=== PATIENT | female | born 1950 | race Caucasian/White ===

== ENCOUNTER 2024-05-14 12:43 | Inpatient (IN) | payer MEDICARE, OTHER, SELFPAY ==
[2024-05-14 10:06] VITALS: BP 131/68
--- NOTE | 2024-05-14 11:12 | ED.MUSCINJ ---
HPI-Injury
General
Chief Complaint: Musculo-Skeletal Complaint
Source: patient
Exam Limitations: none
Time Seen by Provider: 05/14/24 10:54
History of Present Illness-Injury
Initial Injury comments:
73-year-old female presents via EMS from home after trip and fall. She has a foot drop in her right foot got in the way. She fell on her right arm. She complains of pain and deformity to the right forearm. She is typically walker dependent
secondary to her foot drop. She is not anticoagulated. Last oral intake 9 PM last evening. She denies numbness or tingling to the right hand. No head strike no neck pain or back pain. No other complaints at this time
Past History
Past History
ED Past Medical History: Psychiatric and Other (pain)
ED Past Surgical History: Orthopedic (L ORIF Elder)
Social History
Tobacco: Former smoker
Alcohol: None
Drug: None
Personal: Single
Living: alone
Employment: Employed
Family History
Family History: Other (reviewed and non-contributory)
Phy Exam
Physical Exam
Physical Exam:
General: Well-appearing female no acute respiratory distress
HEENT: Normocephalic atraumatic
Heart: Regular rate and rhythm
Lungs: Clear no wheeze
Musculoskeletal exam: Deformity noted to the right forearm she is tender about the right forearm the compartments are soft. The upper arm is nontender she has the ability to move all fingers and thumb right hand
Vascular: Compartments are soft right radial pulses palpable
Neurologic: Good sensation right hand
Skin is intact
Injury Course
Orders/Labs/Results
Orders:
Orders
05/14/24 10:09
Forearm, Right 2 View [CR Forearm - Right 2 View] Urgent
Comment:
Reason For Exam: pain
05/14/24 10:10
Wrist, Right 3 Views [CR Wrist - Right Min 3 Views] Urgent
Comment:
Reason For Exam: pain
MDM/Problems Addressed
Differential Diagnosis Includes:
Trip and fall with right forearm pain. Question fracture versus dislocation. No sign of neuro or vascular injury.
X-rays of the right forearm demonstrate angulated and 100% displaced both bone midshaft forearm fracture. Contacted orthopedics. Do not think patient is good candidate for discharge and outpatient management given walker dependency and severity of
injury
*Critical Care Note
Total Time (30-74mins, 75-104mins- exclusive of procedures): Not Applicable
Update Note
Update Note:
Orthopedics aware they plan on taking the patient to the operating room today for fixation. Hospitalist made aware for admission as she may need placement after the procedure. I applied a sugar-tong splint in the position of comfort using cast
padding 2 inch OCL and Terrence bandages.
ED Attending Note
-
Portions of this chart may have been created with voice recognition software.� Occasional wrong word or��sound alike� substitutions may have occurred due to the inherent limitations of voice recognition software.
Discharge Plan
Departure
Patient Disposition: Admit
Date of Disposition: 05/14/24
Time of Disposition: 11:50
Presentation/result/management discussed w/ accepting MD/DO: Hospitalist
Discharge Problem:
Displaced both bone forearm fracture
Prescriptions:
No Action
baclofen 20 MG tablet
20 mg PO TID
escitalopram oxalate 10 MG tablet
10 mg PO DAILY@1600
acetaminophen 325 MG tablet
650 mg PO Q4HPRN PRN (Reason: mild pain/DAMON/temp> 100.4F) 0RF
aripiprazole 2 MG tablet
2 mg PO DAILY 0RF
zolpidem 5 MG tablet
5 mg PO HS Qty: 5 0RF
pregabalin [Lyrica] 150 MG capsule
150 mg PO BID Qty: 6 0RF
oxycodone 10 MG tablet
10 mg PO Q8HPRN PRN (Reason: moderate pain) Qty: 10 0RF
Referrals:
UNKNOWN - PT DOES,NOT KNOW [Family Provider] -
Interventions
Interventions:
*Risk Screen - Suicide Last Done: 05/14/24 10:06
*General Assessment Last Done: 05/14/24 10:06
*Neglect/Abuse Screening Last Done: 05/14/24 10:06
*ED- Fall Risk Assessment Last Done: 05/14/24 11:37
*ED COVID-19 Vaccine History Last Done: 05/14/24 11:37
ED-Musculoskeletal Assessment Last Done: 05/14/24 11:37
Discharge Date and Time
Print Language: OMANI
--- NOTE | 2024-05-14 12:04 | CON.ORTHO ---
Consultation
-
Date/Time Consultation Requested: 05/14/24 @11:30am
Date/Time Consultation Performed: 05/14/24 @11:45am
Requesting Provider: ER Provider
Performing Provider: Miriam Ramirez PA-C, Jersey Alberto MD
Reason for Consultation: right radius and ulna fracture
Consultation - Orthopedics
History
HPI: 73yo female presents to [facility] for right arm pain. Earlier this morning, she was bringing a package in from outside and fell, landing on her right arm. She noted pain and deformity following the fall. She reports a history of right foot
drop and use of a walker. She states that she did have her walker at the time of the fall. Xrays performed in the ER confirm a both bone forearm fracture. She has not eaten or drank anything since last night. She is not on any blood thinners. Right
arm splint was being applied at the time of my evaluation. She does reports pain in the arm. She is right hand dominant.
PAST MEDICAL HISTORY: psych, chronic pain
PAST SURGICAL HISTORY: Right distal radius ORIF, left humerus ORIF
SOCIAL HISTORY: former smoker. denies alcohol. ambulates with walker at baseline
FAMILY HISTORY: non contributory
REVIEW OF SYSTEMS: 12 point review of systems obtained and negative except those mentioned in the HPI
Allergies / Home Medications
Allergy/AdvReac Type Severity Reaction Status Date / Time
penicillin G Allergy Rash Verified 05/14/24 10:09
Penicillins Allergy Rash Verified 05/14/24 10:09
bees Allergy Anaphylaxis Uncoded 05/14/24 10:09
�Medication �Instructions �Recorded
baclofen 20 mg tablet 20 mg PO TID 03/29/19
escitalopram oxalate 10 mg tablet 10 mg PO DAILY@1600 03/29/19
acetaminophen 325 mg tablet 650 mg (2 x 325 mg) PO Q4HPRN PRN 04/02/19
mild pain/DAMON/temp> 100.4F
aripiprazole 2 mg tablet 2 mg PO DAILY 04/02/19
oxycodone 10 mg tablet 10 mg PO Q8HPRN PRN moderate pain 04/02/19
#10 tabs
pregabalin 150 mg capsule (Lyrica) 150 mg PO BID #6 caps 04/02/19
zolpidem 5 mg tablet 5 mg PO HS #5 tabs 04/02/19
Vital Signs / Lab Results
Temp Pulse Resp BP Pulse Ox
97.8 F 70 16 131/68 95
05/14/24 10:06 05/14/24 10:06 05/14/24 10:06 05/14/24 10:06 05/14/24 10:06
RADIOGRAPHIC FINDINGS:
Xrays right forearm show there is diffuse osteopenia. There are displaced fractures through the mid shaft of both the right radius and ulna with foreshortening. There is adjacent soft tissue edema. Plate and screw device within the distal right
radius secondary to prior fracture. The carpal rows are in anatomic alignment. There is mild degenerative arthropathy involving the first carpal metacarpal joint.
PHYSICAL EXAM:
General: no acute distress
HEENT: NCAT, sclera anicteric, normal hearing
Heart: No JVD
Lungs: Normal work of breathing on room air
MSK: Directed exam of right arm with splint in place. I did not remove. Able to wiggles fingers. Sensation intact to light touch. Cap refill <2secs
Assessment / Plan
ASSESSMENT: 73yo female with right both bone forearm fracture
PLAN: Unfortunately, Ms. Riley sustained fractures to both her radius and ulna with her fall this morning. Recommend surgical fixation. The risks, benefits, and potential complications were reviewed. She is in agreement with surgery. Will plan for
ORIF right radius and ulna later today under the direction of Dr. Alberto or Dr. Delgado. Consent obtained and placed at OR front office secretary. She is to remain NPO. Ancef projection welding machine operator to OR. Maintain splint. Elevate as needed. Continue with pain management as
needed. Will continue to follow along.
[2024-05-14 12:08] LABS: % Basophils 0.4 % (0-2); % Eosinophils 0.4 % (0-6); % Immature Granulocytes 0.2 % (0-0.5); % Lymphocytes 17.6 % (20.5-51.1); % Neutrophils 76.4 % (42.2-75.2); Absolute Lymphocytes 1.7 10^3/uL (1.2-3.4); Absolute Monocytes 0.5 10^3/uL (0.1-0.6); Absolute Neutrophils 7.4 10^3/uL (1.4-6.5); Hematocrit 37.6 % (37.0-47.0); Hemoglobin 12.5 g/dL (12.0-16.0); Mean Corp Hgb Conc. 33.2 g/dL (33.0-37.0); Mean Corpuscular Hgb 29.7 pg (27.0-31.0); Mean Corpuscular Volume 89.3 fL (81.0-99.0); Mean Platelet Volume 10.3 fL (7.4-10.4); Nucleated Red Blood Cells % 0 %; Platelet Count 169 10^3/uL (130-400); Red Blood Cell Count 4.21 10^6/uL (4.20-5.40); Red Cell Dist. Width 14.6 % (11.5-14.5); White Blood Cell Count 9.7 10^3/uL (4.8-10.8)
--- NOTE | 2024-05-14 12:09 | HPS.HSE ---
Family Physician
-
Family Physician: NOT KNOW UNKNOWN - PT DOES
Chief Complaint
-
fall
History of Present Illness
73-year-old female with PMH for depression presents s/p fall from home. patient has right foot drop, she was picking package from outside, she lost the balance and fell on her right arm. she was on the floor for 45 minutes. denied hitting head on
the floor.denied dizzy or syncope.denied chest pain, sob.denied fever, chills. denied abdominal pain,n,v,d. denied dysuria or hematuria
wrist x ray with the impression of Right forearm deformity secondary to displaced fractures involving the midshafts of the right radius and ulna with foreshortening.
admitting for further managment.
Medical History
Past Medical History
Past Medical History: Reports Other
Additional Past Medical History:
HLD
depression
Past Surgical History: Reports None
Social History
Tobacco: Non-smoker
Alcohol: None
Drug: None
Living: Alone
Family History
Family History: Not pertinent
Allergies / Home Medications
Allergies reflects when Allergies were last updated in [facility].
Home Medications with original date entered in [facility]
Allergy/Medication List:
Allergies
Allergy/AdvReac Type Severity Reaction Status Date / Time
penicillin G Allergy Rash Verified 05/14/24 10:09
Penicillins Allergy Rash Verified 05/14/24 10:09
bees Allergy Anaphylaxis Uncoded 05/14/24 10:09
Home Medications
baclofen 20 mg tablet 20 mg PO TID 03/29/19
escitalopram oxalate 10 mg tablet 10 mg PO DAILY@1600 03/29/19
acetaminophen 325 mg tablet 650 mg (2 x 325 mg) PO Q4HPRN PRN mild pain/DAMON/temp> 100.4F 04/02/19
aripiprazole 2 mg tablet 2 mg PO DAILY 04/02/19
oxycodone 10 mg tablet 10 mg PO Q8HPRN PRN moderate pain #10 tabs 04/02/19
pregabalin 150 mg capsule (Lyrica) 150 mg PO BID #6 caps 04/02/19
zolpidem 5 mg tablet 5 mg PO HS #5 tabs 04/02/19
Review of Systems
-
Constitutional: Reports No Symptoms
EENT: Reports No Symptoms
Respiratory: Reports No Symptoms
Cardiac: Reports No Symptoms
Abdomen/GI: Reports No Symptoms
: Reports No Symptoms
Musculoskeletal: Reports Other (right arm wrapped in neva)
Skin: Reports Other (right LE redness from recent burn from dropping hot tea on her LE)
Neurological: Reports No Symptoms
Endocrine: Reports No Symptoms
Hematologic/Lymphatic: Reports No Symptoms
Psych: Reports No Symptoms
Physical Exam
Vital Signs
Vital Signs
Temp Pulse Resp BP Pulse Ox
97.8 F 70 16 131/68 95
05/14/24 10:06 05/14/24 10:06 05/14/24 10:06 05/14/24 10:06 05/14/24 10:06
Physical Exam
General: Well Developed, Well Nourished and No Apparent Distress
HEENT: NormoCephalic, Moist mucous membranes and Atraumatic
Respiratory: Clear
Cardiac: S1/S2 and Regular Rhythm; No Murmur or Rub
GI: Soft, Non Tender, Non Distended and Normal Bowel Sounds; No Organomegaly
Rectal: Deferred by Provider
Musculoskeletal: No Clubbing, No Cyanosis, No Edema and Other (right UE wrapped in neva)
Skin: Rash and Other (right foot redness from burning)
Neuro: AO x 3 and Nonfocal/grossly intact
Psych: Calm
Laboratory Results
-
05/14/24 11:53
Data Reviewed
-
Diagnostic Radiology: Report Reviewed by me
Lab Data: Labs Reviewed by me
Impression/Plan
-
#fall with right radius and ulna fracture
-plan for OR today
-ortho following
-Tylenol, oxy and Dilaudid prn for pain
-keep patient NPO
-wrist X ray with the impression of Right forearm deformity secondary to displaced fractures involving the midshafts of the right radius and ulna with foreshortening.
-forearm x ray with Right forearm deformity secondary to displaced fractures involving the midshafts of the right radius and ulna with foreshortening.
-PT/OT consult
#depression
-trazodone and Cymbalta continued
#chronic foot drop/pain
-baclofen and Lyrica continued
#DVT prophylaxis
-scd
#CODE status
-full code
[2024-05-14 12:22] LABS: ALT (SGPT) 12 U/L (0-35); AST (SGOT) 23 U/L (14-36); Alkaline Phosphatase 91 U/L (38-126); Blood Urea Nitrogen 12 mg/dl (7-17); Calcium 9.2 mg/dl (8.4-10.2); Carbon Dioxide 26 mmol/L (22-30); Chloride 106 mmol/L (98-107); Glucose 94 mg/dl (70-99); Potassium 4.4 mmol/L (3.5-5.1); Sodium 139 mmol/L (135-145); Total Bilirubin 0.8 mg/dl (0.2-1.3); Total Protein 7.2 g/dl (6.3-8.2); eGFR > 60.00
[2024-05-14 12:44] VITALS: BP 132/69
--- NOTE | 2024-05-14 13:11 | W.PN.UPDATE ---
Update Note
Progress Note Update
This is an addendum to the H&P written by Roxana Rios on 05/14/2024.� Patient seen and examined independently with PLANETARIUM TECHNICIAN.
73-year-old female past medical history of sensory/axonal peripheral neuropathy, right foot drop, presenting with trip and fall.� She has foot drop in her right foot got in the way.� She fell onto her right arm.
X-ray of the right forearm/wrist shows displaced fractures involving the mid chest the right radius/ulna with foreshortening.
Plan for surgery today with orthopedics.� Patient with low risk of post cardiac complications.� NPO.� Tylenol, Dilaudid for pain as needed.
[2024-05-14 14:19] VITALS: BP 146/79; BMI 28.1
[2024-05-14] MEDS: DILAUDID 0.5 MG IV (15:25)
[2024-05-14 15:39] VITALS: BP 113/73
[2024-05-14] MEDS: TYLENOL 650 MG PO ×2 (17:11→21:12)
[2024-05-14] MEDS: LIORESAL 20 MG PO ×2 (17:11→21:12)
[2024-05-14] MEDS: LYRICA 150 MG PO ×2 (17:11→21:12)
[2024-05-14 20:09] LABS: Hepatitis C Antibody Negative (Negative)
[2024-05-14] MEDS: DESYREL 300 MG PO (21:11)
[2024-05-14] MEDS: CYMBALTA DELAYED RELEASE 30 MG PO (21:12)
[2024-05-14] MEDS: COLACE 100 MG PO (21:13)
[2024-05-14] MEDS: SENOKOT 17.2 MG PO (21:13)
[2024-05-14] MEDS: ROXICODONE 5 MG PO (21:17)
[2024-05-14 23:22] VITALS: BP 85/53
[2024-05-15] VITALS (10 sets, daily range): BP systolic 90–110; BP diastolic 46–71
[2024-05-15] MEDS: TYLENOL PO ×5 (01:00→23:45)
[2024-05-15] MEDS: DILAUDID 0.5 MG IV (01:20)
--- NOTE | 2024-05-15 07:28 | W.PN.UPDATE ---
Update Note
Progress Note Update
Ms. Riley is resting comfortably in bed this morning. Her right upper extremity has a short arm splint in place. She reports her pain is well controlled with her current medications. She is planned for surgery today for ORIF radius and ulna
fractures under the direction of either Dr. Delgado or Dr. Alberto.
She is able to wiggle her fingers. Good color and warmth of fingers. Sensation intact to light touch. Capillary refill <2 seconds.
Continue in splint until surgery.
NPO until surgery.
Pain control prn.
Orthopedics will continue to follow along. Please reach out with any additional questions or concerns.
[2024-05-15] MEDS: LYRICA 150 MG PO ×2 (08:31→23:10)
[2024-05-15] MEDS: SENOKOT PO ×2 (08:32→20:24)
[2024-05-15] MEDS: TYLENOL 650 MG PO ×2 (08:32→20:18)
[2024-05-15] MEDS: LIORESAL 20 MG PO ×2 (08:32→23:10)
[2024-05-15] MEDS: COLACE PO (08:32)
--- NOTE | 2024-05-15 12:36 | W.PN.HOSP.TC ---
Today's Communication/Plan
-
OR today
dvt ppx thereafter
Assessment / Plan
Assessment / Plan
Physical Exam
General: Well Developed, Well Nourished and No Apparent Distress
HEENT: NormoCephalic, Moist mucous membranes and Atraumatic
Respiratory: Clear
Cardiac: S1/S2 and Regular Rhythm; No Murmur or Rub
GI: Soft, Non Tender, Non Distended and Normal Bowel Sounds; No Organomegaly
Rectal: Deferred by Provider
Musculoskeletal: No Clubbing, No Cyanosis, No Edema and Other (right UE wrapped in neva)
Skin: Rash and Other (right foot redness from burning)
Neuro: AO x 3 and Nonfocal/grossly intact
Psych: Calm
#Mechanical fall
#right radius and ulna fracture
-plan for OR today
-ortho following
-Tylenol, oxy and Dilaudid prn for pain
-keep patient NPO
-wrist X ray with the impression of Right forearm deformity secondary to displaced fractures involving the midshafts of the right radius and ulna with foreshortening.
-forearm x ray with Right forearm deformity secondary to displaced fractures involving the midshafts of the right radius and ulna with foreshortening.
-PT/OT consult
-dvt ppx thereafter
#depression
-trazodone and Cymbalta continued
#chronic foot drop/pain
-baclofen and Lyrica continued
#DVT prophylaxis
-scd; start asa 325mg or hsq depending on ortho recs post procedure
#CODE status
-full code
Anticipated Discharge: Within 24 hours
Subjective/Interval History
-
Date of Service: May 15, 2024
No acute events
Objective Data
-
Vital Signs:
Vital Signs
Temp Pulse Resp BP Pulse Ox
97.6 F 63 16 96/50 97
05/15/24 07:30 05/15/24 07:30 05/15/24 07:30 05/15/24 07:30 05/15/24 07:30
I&O
05/14/24 05/15/24 05/16/24
06:59 06:59 06:59
Intake Total 480 / 480
Balance 480 / 480
Review of Systems
-
History Source: Patient
All other systems: Not reviewed unless documented
Data Reviewed
-
Diagnostic Radiology: Report Reviewed by me
Labs: Labs Reviewed by me
[2024-05-15] MEDS: LYRICA PO (16:00)
[2024-05-15] MEDS: LIORESAL PO (16:00)
[2024-05-15 16:11] LABS: Creatine Phosphokinase 66 U/L (30-135)
--- NOTE | 2024-05-15 20:00 | PTCARENOTE ---
Received from PACU nurses around 1950 and surgical site assessed with off-going PACU nurse at bedside. Pt. received a block intraop and has no sensation or control of RUE at this time. Brachial artery weak but palpable, fingers warm, capillary
refill <2secs, and VSS.
[2024-05-15] MEDS: COLACE 100 MG PO (20:18)
[2024-05-15] MEDS: LOW STRENGTH ASPIRIN 81 MG PO (20:18)
[2024-05-15] MEDS: CELEBREX 100 MG PO (20:18)
[2024-05-15] MEDS: CYMBALTA DELAYED RELEASE 30 MG PO (23:10)
[2024-05-15] MEDS: DESYREL 300 MG PO (23:10)
[2024-05-15] MEDS: FLUSH (NSS) 2 FLUSH IV (23:19)
[2024-05-15] MEDS: ANCEF 5 IV (23:19)
[2024-05-16] MEDS: MELATONIN 5 MG PO (01:27)
[2024-05-16 03:00] VITALS: BP 94/55
[2024-05-16] MEDS: TYLENOL PO ×2 (05:16→14:11)
--- NOTE | 2024-05-16 06:58 | W.PN.ORTHO ---
Today's Communication / Plan
-
-Elevation right upper extremity to above the level of her heart to control swelling and pain
-Interscalene block still is working so she has no sensation and cannot wiggle her fingers at this morning (hand warm to touch with good capillary refill and pulses)
-Sling with strict nonweightbearing right upper extremity
-Follow-up with orthopedics 2 weeks postop to check her progress
Assessment
.
Distal Motor Intact: No
Dressing:
Clean, dry and intact.
Plan
.
Surgery / Date: ORIF R radius/ulna 05/15 Ritting
DVT Prophylaxis: Aspirin
Activity:
Out of bed.
PT/OT
Subjective
.
.:
Patient resting comfortably.
Vital Signs and Labs
.
Vital Signs and Labs:
Temp Pulse Resp BP Pulse Ox
98.3 F 75 12 94/55 93
05/16/24 03:00 05/16/24 03:00 05/16/24 03:00 05/16/24 03:00 05/16/24 03:00
Physical Exam
-
Splint in place right upper extremity. It is clean, dry and intact. Edema noted with in her fingers. Fingers are warm to touch with capillary refill 2 to 3 seconds and pulses are palpable. She is numb in her hand and fingers and cannot move them
but she did have an interscalene block which accounts for this.
[2024-05-16 07:17] LABS: Hematocrit 33.4 % (37.0-47.0); Mean Corp Hgb Conc. 32.9 g/dL (33.0-37.0); Mean Corpuscular Hgb 29.6 pg (27.0-31.0); Mean Corpuscular Volume 89.8 fL (81.0-99.0); Mean Platelet Volume 10.9 fL (7.4-10.4); Platelet Count 159 10^3/uL (130-400); Red Blood Cell Count 3.72 10^6/uL (4.20-5.40); Red Cell Dist. Width 14.8 % (11.5-14.5)
[2024-05-16 07:30] VITALS: BP 101/64
[2024-05-16] MEDS: ANCEF 5 IV (07:30)
[2024-05-16] MEDS: LYRICA 150 MG PO ×3 (07:30→22:54)
[2024-05-16] MEDS: CELEBREX 100 MG PO ×2 (07:30→19:46)
[2024-05-16] MEDS: LOW STRENGTH ASPIRIN 81 MG PO ×2 (07:30→19:46)
[2024-05-16] MEDS: TYLENOL 650 MG PO ×3 (07:30→19:46)
[2024-05-16] MEDS: COLACE PO ×2 (07:31→19:46)
[2024-05-16] MEDS: LIORESAL 20 MG PO ×3 (07:31→22:54)
[2024-05-16] MEDS: SENOKOT PO ×2 (07:31→19:46)
[2024-05-16 07:51] LABS: ALT (SGPT) 12 U/L (0-35); AST (SGOT) 24 U/L (14-36); Albumin 3.6 g/dl (3.5-5.0); Alkaline Phosphatase 79 U/L (38-126); Blood Urea Nitrogen 19 mg/dl (7-17); Calcium 8.4 mg/dl (8.4-10.2); Carbon Dioxide 28 mmol/L (22-30); Chloride 104 mmol/L (98-107); Estimated Creatinine Clearance 61 ml/min; Glucose 136 mg/dl (70-99); Potassium 4.6 mmol/L (3.5-5.1); Sodium 138 mmol/L (135-145); Total Bilirubin 0.5 mg/dl (0.2-1.3); Total Protein 6.4 g/dl (6.3-8.2); eGFR > 60.00
--- NOTE | 2024-05-16 10:33 | CM ---
Addendum entered by Obdulia Dillon 05/16/24 13:53:
Seen by PT/OT - recs SNF
[facility] with pt [facility]
Will send referrals in [facility]
Plan - SNF when bed obtained
Original Note:
Met with pt at bedside
Initial assessment completed
Pt lives alone in an apartment at [facility]. Has caretakers through [employer] 5hrs/day M-F - assist with adl's, cleaning, meal prep
Min assist with adl's, feeds self, heats up meals, ambulates with rolling walker
SNF - [facility] in past
[facility] - [facility] in past
Has ride at d/c
PCP - Maty Stout with [facility] (make home visits)
Pharm - [facility]
PT/OT pend post op
Plan - anticipate home with VN vs SNF
[2024-05-16 11:26] VITALS: BP 95/51
--- NOTE | 2024-05-16 12:37 | W.PN.HOSP.TC ---
Addendum entered and electronically signed by Chico Gusman MD 06/02/24 14:45:
Due to a combination of trauma and a pathological process
but the trauma alone would not likely have been sufficient
to cause the fracture
Original Note:
Today's Communication/Plan
-
-ASA 81mg BID x 6 weeks
-Elevation right upper extremity to above the level of her heart to control swelling and pain
-Interscalene block still is working so she has no sensation and cannot wiggle her fingers at this morning (hand warm to touch with good capillary refill and pulses)
-Sling with strict nonweightbearing right upper extremity
-Follow-up with orthopedics 2 weeks postop to check her progress
Assessment / Plan
Assessment / Plan
Physical Exam
General: Well Developed, Well Nourished and No Apparent Distress
HEENT: NormoCephalic, Moist mucous membranes and Atraumatic
Respiratory: Clear
Cardiac: S1/S2 and Regular Rhythm; No Murmur or Rub
GI: Soft, Non Tender, Non Distended and Normal Bowel Sounds; No Organomegaly
Rectal: Deferred by Provider
Musculoskeletal: No Clubbing, No Cyanosis, No Edema and Other (right UE wrapped in neva)
Skin: Rash and Other (right foot redness from burning)
Neuro: AO x 3 and Nonfocal/grossly intact
Psych: Calm
#Mechanical fall
#right radius and ulna fracture
-ORIF R radius/ulna 05/15 Ritting
-ortho following
-ASA 81mg BID x 6 weeks
-Elevation right upper extremity to above the level of her heart to control swelling and pain
-Interscalene block still is working so she has no sensation and cannot wiggle her fingers at this morning (hand warm to touch with good capillary refill and pulses)
-Sling with strict nonweightbearing right upper extremity
-Follow-up with orthopedics 2 weeks postop to check her progress
#depression
-trazodone and Cymbalta continued
#chronic foot drop/pain
-baclofen and Lyrica continued
#DVT prophylaxis
-scd; -ASA 81mg BID x 6 weeks
#CODE status
-full code
More than 30 minutes spent in discharge including
Final examination of the patient
Summarizing hospital stay
Instructions for continuing care to all relevant caregivers
Preparation of discharge records, prescriptions, and referral forms
Total time spent (35 in minutes):
Anticipated Discharge: Today
Subjective/Interval History
-
Date of Service: May 16, 2024
Tolerated procedure well
Objective Data
-
Labs:
Laboratory Results
05/16/24
06:10
WBC 10.0
Hgb 11.0 L
Hct 33.4 L
Plt Count 159
Sodium 138
Potassium 4.6
Chloride 104
Carbon Dioxide 28
BUN 19 H
Creatinine 0.9
Glucose 136 H
Calcium 8.4
Total Bilirubin 0.5
AST 24
ALT 12
Alkaline Phosphatase 79
Vital Signs:
Vital Signs
Temp Pulse Resp BP Pulse Ox
98.4 F 78 16 95/51 96
05/16/24 11:26 05/16/24 11:26 05/16/24 11:26 05/16/24 11:26 05/16/24 11:26
I&O
05/15/24 05/16/24 05/17/24
06:59 06:59 06:59
Intake Total 480 / 480 100 / 100
Output Total 625 / 625
Balance 480 / 480 -525 / -525
Review of Systems
-
History Source: Patient
All other systems: Not reviewed unless documented
Data Reviewed
-
Diagnostic Radiology: Report Reviewed by me
Labs: Labs Reviewed by me
--- NOTE | 2024-05-16 12:39 | W.DS.TRANS ---
DC Summary - [employer] Serv[employer]
-
Discharge Instructions:
Discharge Diagnosis/Procedures
#Mechanical fall
#right radius and ulna fracture
#ORIF radius and ulna fractures
Activity As tolerated
Blood Work cbc and bmp in 1 week with PCP
Instructions: Surgery to fix a broken bone - Discharge instructions
Stand-Alone Forms:
Changes to Home Medications: Yes
Discharge Medications:
DC Medications w/original date entered in [employer]
baclofen 20 mg tablet 20 mg PO TID 03/29/19
duloxetine 30 mg capsule,delayed release (Cymbalta) 30 mg PO HS 05/14/24
ergocalciferol (vitamin D2) 1,250 mcg (50,000 unit) capsule 1,250 mcg PO MO 05/14/24
pregabalin 150 mg capsule (Lyrica) 150 mg PO TID 05/14/24
trazodone 150 mg tablet 300 mg PO HS 05/14/24
acetaminophen 325 mg tablet 650 mg (2 x 325 mg) PO Q4HWA Pain #90 tabs 05/16/24
aspirin 81 mg chewable tablet 81 mg PO BID 6 weeks #84 tabs 05/16/24
celecoxib 100 mg capsule 100 mg PO BID 7 days #14 caps 05/16/24
Home Medication Changes
celecoxib 100 mg capsule 100 mg PO BID 7 days #14 caps 05/16/24
acetaminophen 325 mg tablet 650 mg (2 x 325 mg) PO Q4HWA Pain #90 tabs 05/16/24
aspirin 81 mg chewable tablet 81 mg PO BID 6 weeks #84 tabs 05/16/24
Pending Results: No
[2024-05-16 13:38] VITALS: BP 102/60; PULSE 82; O2SAT 94
--- NOTE | 2024-05-16 15:10 | PN.CDI ---
CDI
- -
CDI:
Physician Documentation Request
Admit Date: 05/14/24 12:43
Dear Doctor Uzma,
Please review the following and provide your response in the progress notes.
Clinical Indicators:
Pt admitted with mechanical fall/ right radius and right ulna fracture.
05/14 Right forearm Xray: 'There is diffuse osteopenia. There are displaced fractures through the mid shaft of both the right radius and ulna with foreshortening.'
Please provide further specificity regarding the diagnosis of fracture:
Etiology
Traumatic
Pathologic due to osteoporosis
Due to a combination of trauma and a pathological process
but the trauma alone would not likely have been sufficient
to cause the fracture
Other
Use of terms such as suspected, likely, concern for, or probable (associated with a specific diagnosis that is being evaluated, monitored, or treated as if it exists) are acceptable and can be coded in the inpatient setting, when documented at the
time of discharge.
Thank you,
Silvia Silver RN, BSN
CDI Specialist
[facility] [employer]
Please use your independent medical judgment in providing your response.
[2024-05-16 19:00] VITALS: BP 100/54
[2024-05-16] MEDS: CYMBALTA DELAYED RELEASE 30 MG PO (22:54)
[2024-05-16] MEDS: DESYREL 300 MG PO (22:54)
[2024-05-16 23:00] VITALS: BP 92/43
[2024-05-17] MEDS: TYLENOL 650 MG PO ×4 (00:32→12:37)
[2024-05-17 07:25] VITALS: BP 94/56
--- NOTE | 2024-05-17 07:28 | W.PN.ORTHO ---
Today's Communication / Plan
-
73F POD2 Right radius and ulna diaphyseal ORIF with Dr. Delgado
-completely NVI today
-Elevation right upper extremity to above the level of her heart to control swelling and pain
-Sling with strict nonweightbearing right upper extremity; may take breaks from sling when at rest- ROM of fingers and shoulder ok
-Follow-up with orthopedics 2 weeks postop to check her progress outpatient
-PT/OT - fall risk with foot drop and limited use of assistive devices. Likely 4-6 weeks until able to use a walker
-recommend ASA 81 BID to reduce DVT risk until ambulatory/30 days anticipated.
D/C info completed- ortho will follow peripherally
Assessment
.
Distal Motor Intact: Yes
Dressing:
Clean, dry and intact.
Plan
.
Surgery / Date: ORIF R radius/ulna shaft 05/15 Dr. Delgado
DVT Prophylaxis: Aspirin
Activity:
Out of bed.
PT/OT
Subjective
.
.:
Patient resting comfortably.
Vital Signs and Labs
.
Vital Signs and Labs:
Lab Results
05/16/24 06:10
05/16/24 06:10
Temp Pulse Resp BP Pulse Ox
98.4 F 84 14 92/43 95
05/16/24 23:00 05/16/24 23:00 05/16/24 23:00 05/16/24 23:00 05/16/24 23:00
[2024-05-17] MEDS: COLACE 100 MG PO (08:23)
[2024-05-17] MEDS: CELEBREX 100 MG PO (08:23)
[2024-05-17] MEDS: LOW STRENGTH ASPIRIN 81 MG PO (08:23)
[2024-05-17] MEDS: SENOKOT 17.2 MG PO (08:24)
[2024-05-17] MEDS: LIORESAL 20 MG PO (08:24)
[2024-05-17] MEDS: LYRICA 150 MG PO (08:24)
--- NOTE | 2024-05-17 11:35 | CM ---
Pt accepted at [facility] - requested [facility]
Spoke with [facility] - has beds today - can accept
Team notified
Given IMM
Plan - transfer to [facility]
R - [phone]
- [phone]
[2024-05-17 12:50] VITALS: BP 106/63
== END 2024-05-17 13:30 | DRG 512 ==
LOC: 2 SOUTH 12:43
PROVIDERS: Internal Medicine; Orthopaedic Surgery Hand Surgery; Physician Assistant; ADMITTING PHYSICIAN Hospitalist; ATTENDING PHYSICIAN Internal Medicine; EMERGENCY PHYSICIAN Emergency Medicine; OTHER PHYSICIAN Orthopaedic Surgery
PROC: 0PSK04Z Reposition Right Ulna with Internal Fixation Device, Open Approach (ICD-10-PCS; 2024-05-15)
PROC: 0PSH04Z Reposition Right Radius with Internal Fixation Device, Open Approach (ICD-10-PCS; 2024-05-15)
DX: M84.633 Pathological fracture in other disease, right radius (principal); M84.63 Pathological fracture in other disease, ulna and radius; M85.831 Other specified disorders of bone density and structure, right forearm; M21.371 Foot drop, right foot; E78.5 Hyperlipidemia, unspecified; F32.A Depression, unspecified; G89.29 Other chronic pain; Z88.0 Allergy status to penicillin; Z79.899 Other long term (current) drug therapy; Z87.891 Personal history of nicotine dependence; W01.0XXA Fall on same level from slipping, tripping and stumbling without subsequent striking against object, initial encounter
CPT/HCPCS: 73090; 73110; 80053; 82550; 85025; 85027; 86803; 97163; 97167; 97535; 99285; C1713

== ENCOUNTER 2024-07-19 09:09 | Emergency (ER) | payer MEDICARE, OTHER, SELFPAY ==
[2024-07-19] VITALS (8 sets, daily range): BP systolic 102–140; BP diastolic 62–84; BMI 28.5
--- NOTE | 2024-07-19 09:14 | ED.GENMED ---
History of Present Illness
General
Chief Complaint: Fall
Source: patient and ambulance crew
Exam Limitations: none
Time Seen by Provider: 07/19/24 09:11
Nursing documentation reviewed up to this point in time: agreed with
History of Present Illness
History of Present Illness:
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
stand up throughout the night for multiple hours. Called EMS this morning.
Past History
Past History
ED Past Medical History: Psychiatric and Other (pain)
ED Past Surgical History: Orthopedic (Clay Friedman)
Social History
Tobacco: Former smoker
Alcohol: None
Drug: None
Personal: Single
Living: alone
Employment: Employed
Family History
Family History: Other (reviewed and non-contributory)
Review of Systems
Review of Systems
Allergies reviewed?: Yes
All Other Systems: ROS reviewed and negative except as documented in HPI and ROS
Phy Exam
Physical Exam
Physical Exam:
GENERAL: Alert , in no apparent distress
EYE: pupils equal and reactive
NECK: Supple, no significant adenopathy.
ENT: o/p clr, mmm.
CARDIAC: Regular rate and rhythm .
LUNGS: Clear breath sounds bilaterally, no acute respiratory distress, no wheezes/rales/rhonchi
ABDOMEN: Soft, without focal tenderness, no r/g, no cvat
NEUROLOGICAL: Alert and oriented, no focal neuro deficits
SKIN: Warm and dry, skin intact.
MUSCULOSKELETAL: Right arm in a sling, well perfused.
PSYCH: Normal and appropriate interaction.
Course
Orders/Labs/Results
Orders:
Orders
07/19/24 09:11
Urinalysis Reflex To Culture Urgent
Date Specimen was Collected: 07/19/24
Time Specimen was Collected: 09:51
07/19/24 09:12
Electrocardiogram (*1) Stat
Reason for Study: Other
Other Reason for Exam: chest pain
Cardiac Monitoring- Treatment ONCE
EKG- Treatment ONCE
CR Chest - 2 Views Urgent
Comment:
Reason For Exam: CP
07/19/24 09:19
Complete Blood Count/With Diff Urgent
Comprehensive Metabolic Panel Urgent
Creatine Phosphokinase Urgent
D-Dimer Urgent
Magnesium Urgent
Troponin I Urgent
07/19/24 10:21
CR Foot - Left Min 3 Views Urgent
Comment:
Reason For Exam: foot pain after fall
07/19/24 11:19
CT Chest PE Study Urgent
Comment:
Reason For Exam: chest pain elevated dimer
07/19/24 13:14
Terrence Wrap Left-Treatment ONCE
Abnormal Lab Results
07/19/24
09:19
MCHC 32.9 L g/dL
(33.0-37.0)
RDW 14.8 H %
(11.5-14.5)
D-Dimer 0.81 H ug/mlFEU
(0.00-0.50)
Carbon Dioxide 31 H mmol/L
(22-30)
BUN 24 H mg/dl
(7-17)
Glucose 101 H mg/dl
(70-99)
Magnesium 2.4 H mg/dl
(1.6-2.3)
Creatine Kinase 149 H U/L
(30-135)
Total Protein 8.3 H g/dl
(6.3-8.2)
07/19/24 09:19
07/19/24 09:19
Vital Signs
Initial and Last Documented VS:
Initial Vital Signs
Resp
23
07/19/24 09:14
Last Documented Vital Signs
Temp Pulse Resp BP Pulse Ox
98.0 F 82 13 109/82 95
07/19/24 09:20 07/19/24 11:19 07/19/24 11:19 07/19/24 11:19 07/19/24 11:19
MDM/Problems Addressed
MDM/Problems Addressed:
74-year-old female presenting to the emergency department today with concerns of a fall tripping up over a Pilates machine at home fell to the ground last night was on the ground for multiple hours called EMS this morning. Here patient
well-appearing no distress. Labs showing elevated D-dimer level of 0.81 otherwise vital signs have been normal throughout ER stay CT PE was obtained without acute abnormalities no signs of PE. Otherwise labs without emergent findings other than
slight potential dehydration was given fluids able tolerate by mouth. X-ray without signs of fracture. Patient chest pain likely due to irritation from her fall specifically. Does not seem to be consistent with any cardiac syndrome or any
emergent pathology. Advised for close outpatient follow-up.
*Critical Care Note
Total Time (30-74mins, 75-104mins- exclusive of procedures): Not Applicable
ED Attending Note
-
Portions of this chart may have been created with voice recognition software.� Occasional wrong word or��sound alike� substitutions may have occurred due to the inherent limitations of voice recognition software.
Discharge Plan
Departure
Patient Disposition: Home (Routine Discharge)
Date of Disposition: 07/19/24
Time of Disposition: 13:15
Patient with high blood pressure during this ER visit?: No
Condition: Good
Covid-19: Not Applicable
Discharge Problem:
Fall, Foot sprain, Chest pain
Instructions: Preventing falls in adults
Prescriptions:
No Action
baclofen 20 MG tablet
20 mg PO TID
pregabalin [Lyrica] 150 MG capsule
150 mg PO TID
trazodone 150 mg Tablet
300 mg PO HS
ergocalciferol (vitamin D2) 1,250 mcg (50,000 unit) Capsule
1,250 mcg PO MO
duloxetine [Cymbalta] 30 mg Capsule,Delayed Release(Dr/Ec)
30 mg PO HS
acetaminophen 325 mg Tablet
650 mg PO Q4HWA Qty: 90 0RF
celecoxib 100 mg Capsule
100 mg PO BID 7 Days Qty: 14 0RF
aspirin 81 mg Tablet,Chewable
81 mg PO BID 42 Days Qty: 84 0RF
Referrals:
NONE,* [Family Provider] -
Activity Restrictions/Additional Instructions:
You came to the emergency department today with concerns after a fall. Here your reassuring assessment. Please have close with your primary care doctor within 1 week for reassessment. Return for any worsening, new or concerning symptoms.
Interventions
Interventions:
*Risk Screen - Suicide Last Done: 07/19/24 09:45
*General Assessment Last Done: 07/19/24 09:20
*Neglect/Abuse Screening Last Done: 07/19/24 09:20
*ED- Fall Risk Assessment Last Done: 07/19/24 09:20
*ED COVID-19 Vaccine History Last Done: 07/19/24 09:20
ED-Musculoskeletal Assessment Last Done: 07/19/24 09:45
ED- Neurological Assessment Last Done: 07/19/24 09:45
ED-Skin Assessment Last Done: 07/19/24 09:45
Discharge Date and Time
Print Language: OMANI
[2024-07-19 09:36] LABS: % Basophils 0.5 % (0-2); % Eosinophils 1.2 % (0-6); % Immature Granulocytes 0.3 % (0-0.5); % Monocytes 8.2 % (1.7-9.3); % Neutrophils 68.8 % (42.2-75.2); Absolute Eosinophils 0.1 10^3/uL (0-0.7); Absolute Lymphocytes 1.6 10^3/uL (1.2-3.4); Absolute Monocytes 0.6 10^3/uL (0.1-0.6); Absolute Neutrophils 5.4 10^3/uL (1.4-6.5); Hematocrit 39.8 % (37.0-47.0); Hemoglobin 13.1 g/dL (12.0-16.0); Mean Corp Hgb Conc. 32.9 g/dL (33.0-37.0); Mean Corpuscular Hgb 29.6 pg (27.0-31.0); Mean Platelet Volume 9.7 fL (7.4-10.4); Nucleated Red Blood Cells % 0 %; Platelet Count 230 10^3/uL (130-400); Red Blood Cell Count 4.42 10^6/uL (4.20-5.40); Red Cell Dist. Width 14.8 % (11.5-14.5); White Blood Cell Count 7.8 10^3/uL (4.8-10.8)
[2024-07-19 09:49] LABS: ALT (SGPT) 20 U/L (0-35); AST (SGOT) 25 U/L (14-36); Albumin 4.6 g/dl (3.5-5.0); Alkaline Phosphatase 121 U/L (38-126); Blood Urea Nitrogen 24 mg/dl (7-17); Calcium 9.3 mg/dl (8.4-10.2); Carbon Dioxide 31 mmol/L (22-30); Chloride 107 mmol/L (98-107); Creatine Phosphokinase 149 U/L (30-135); Estimated Creatinine Clearance 55 ml/min; Glucose 101 mg/dl (70-99); Magnesium 2.4 mg/dl (1.6-2.3); Potassium 4.1 mmol/L (3.5-5.1); Sodium 144 mmol/L (135-145); Total Bilirubin 0.7 mg/dl (0.2-1.3); Total Protein 8.3 g/dl (6.3-8.2); eGFR 59.12
[2024-07-19 10:00] LABS: Troponin I < 0.012 ng/ml
[2024-07-19 10:31] LABS: D-Dimer 0.81 ug/mlFEU (0.00-0.50)
--- NOTE | 2024-07-19 13:09 | EDRN ---
Patient is sleeping at this time with call jackson in reach.
== END 2024-07-19 17:39 | disposition home or self-care (01) ==
LOC: EMR 09:09
PROVIDERS: Physician Assistant; EMERGENCY PHYSICIAN Emergency Medicine
DX: S93.602A Unspecified sprain of left foot, initial encounter (principal); R07.9 Chest pain, unspecified; W19.XXXA Unspecified fall, initial encounter; Z87.891 Personal history of nicotine dependence; R79.1 Abnormal coagulation profile
CPT/HCPCS: 99285; 71046; 71275; 73630; 80053; 82550; 83735; 84484; 85025; 85379; 93005; Q9967

== ENCOUNTER 2024-11-27 18:27 | Inpatient (IN) | payer MEDICARE, OTHER, SELFPAY ==
[2024-11-27] VITALS (8 sets, daily range): BP systolic 131–152; BP diastolic 61–85; BMI 28.2; BMI 26.8; BMI 27.0
[2024-11-27 15:35] LABS: Hematocrit 30.9 % (37.0-47.0); Hemoglobin 10.5 g/dL (12.0-16.0); Mean Corp Hgb Conc. 34.0 g/dL (33.0-37.0); Mean Corpuscular Volume 87.8 fL (81.0-99.0); Nucleated Red Blood Cells % 0 %; Platelet Count 175 10^3/uL (130-400); Red Cell Dist. Width 15.1 % (11.5-14.5)
[2024-11-27] MEDS: MORPHINE SULFATE 2 MG IV ×2 (15:35→18:38)
[2024-11-27] MEDS: NSS 500 IV (15:35)
--- NOTE | 2024-11-27 15:43 | ED.GENMED ---
History of Present Illness
General
Chief Complaint: Fall
Source: patient
Exam Limitations: none
Time Seen by Provider: 11/27/24 15:16
Nursing documentation reviewed up to this point in time: agreed with
History of Present Illness
History of Present Illness:
Patient presents to ED from [facility], after falling down, while walking to bathroom yesterday evening, landing on her right side. Patient was unable to stand up and laid on the ground entire day. Today, patient was able to finally reach her
phone and call for help. Patient denies loss of consciousness. Denies headache. Denies neck pain. Denies chest pain. Denies palpitations or shortness of breath prior to falling. Denies nausea or vomiting. Denies recent illness. Denies recent
change in medications or diet. Patient does not take any blood thinning medications. Patient received normal saline along with fentanyl by paramedics, during transport to ED.
Past History
Past History
ED Past Medical History: Psychiatric and Other (pain)
ED Past Surgical History: Orthopedic (Clay Friedman)
Social History
Tobacco: Former smoker
Alcohol: None
Drug: None
Personal: Single
Living: alone
Employment: Employed
Family History
Family History: Other (reviewed and non-contributory)
Review of Systems
Review of Systems
Allergies reviewed?: Yes
All Other Systems: ROS reviewed and negative except as documented in HPI and ROS
Constitutional: Reports no symptoms; Denies fever
Respiratory: Reports no symptoms; Denies trouble breathing
Cardiac: Reports no symptoms; Denies chest pain, palpitations or syncope
ABD/GI: Reports no symptoms
Musculoskeletal: Reports back pain and other (hip and back pain)
Skin: Reports no symptoms
Neurological: Reports no symptoms
Phy Exam
Physical Exam
Physical Exam:
Physical Exam
General: mild painful distress, not acutely ill. afebrile
Head: nc/at. eomi
Neck: supple. normal range of motion. no midline tenderness.
Heart: s1/s2 regular rate and rhythm
Lungs: no acute respiratory distress. clear bilaterally
Abdomen: normal bowel sounds. not tender.
Neuro: alert and oriented x 3. no focal neurological deficits
Skin: no rash
Psychiatric: well kept. interactive and cooperative
Extremities: RLE: shortened and externally rotated.
Course
Orders/Labs/Results
Orders:
Orders
11/27/24 Dinner
Regular
At Your Request: Full Participation
11/27/24 15:06
EKG [Electrocardiogram (*1)] Urgent
Reason for Study: Other
Other Reason for Exam: fall
EKG- Treatment ONCE
11/27/24 15:22
EKG- Treatment ONCE
CR Hips GILBERT w/wo Pel 3-4 Vw Urgent
Comment:
Reason For Exam: trauma
Include a pelvis x-ray?: Yes
11/27/24 15:23
0.9% Sodium Chloride 500 ml [Nss] 500 ml IV BOLUS
Morphine Sulfate 2 mg IV NOW STA
11/27/24 15:26
CPK [Creatine Phosphokinase] Urgent
Complete Blood Count/With Diff Urgent
Comprehensive Metabolic Panel Urgent
Lactic Acid Urgent
Troponin I Urgent
11/27/24 15:47
CR Lumbar Spine 2 Or 3 Views Urgent
Reason For Exam: trauma
11/27/24 16:20
Case Management Consult ONCE
Case Management Consult: Discharge Planning
Requested By:: NURSING
Comment: patient lives independently at [facility]- frequent falls.
11/27/24 17:15
Urinalysis Reflex To Culture Urgent
Date Specimen was Collected: 11/27/24
Time Specimen was Collected: 17:13
Urine Microscopic Reflex Cult Urgent
Urine Culture Urgent
NUNO Source: U
Specimen Description:
Date Specimen was Collected: 11/27/24
Time Specimen was Collected: 17:13
11/27/24 17:53
Admit/Transfer Patient As Directed
Co-Sign Provider:
Level of Care: Inpatient admission
Assign to:: Medical/Surgical
Physician / Group: Chris Marroquin
Diagnosis: closed right hip fracture, leukocytosis
Reason for Hospitalization: closed right hip fracture, leukocytosis
Expected length of stay greater than two midnights?: Yes
ELOS- Estimated Length of Stay in days: 3
I certify the patient meets the requirements for IP care: Yes
STOOL [C difficile Antigen & Toxins] Urgent
NUNO Source: Feces/Stool
Specimen Description:
Stool Culture Urgent
NUNO Source: Feces/Stool
Specimen Description:
11/27/24 17:54
Code Status As Directed
Resuscitation Status: Do not resuscitate
Reached after discussion with pt or family/Healthcare POA: Yes
Decision communicated with: patient
11/27/24 17:56
DNR Bracelet Application ONCE
11/27/24 20:10
Lactic Acid Q6H
11/27/24 20:47
0.9% Sodium Chloride 1000 ml [Nss] 1,000 ml IV 100 mls/hr
0.9%NaCl irrig-decyl glucoside [Sea-Clens Wound Cleanser] 1 ml IRRIG BID
Acetaminophen [Tylenol] 650 mg PO Q4HPRN PRN
Morphine Sulfate 2 mg IV Q4HPRN PRN
Oxycodone [Roxicodone] 5 mg PO Q4HPRN PRN
11/27/24 20:47
ORTHOPEDIC CONSULT Routine
Consulting Provider: Se Garcia
Was physician already notified: Yes
WOUND/OSTOMY CONSULT Routine
Reason for Consult: left great toe and left heel wounds
Activity As Directed
Activity Level: As Tolerated
Pneumatic Compression Sleeves As Directed
Type: Knee high
Vital Signs As Directed
Frequency: Per unit guidelines
Weight As Directed
Frequency: Once
Comment: on admission
DX Deep Vein Thrombosis Video Routine
11/27/24 22:00
Baclofen [Lioresal] 20 mg PO TID
CefTRIAXone [Rocephin] 1,000 mg IV Q24H
Pregabalin [Lyrica] 150 mg PO TID
Trazodone [Desyrel] 300 mg PO HS
11/28/24 Breakfast
NPO
Allow oral meds: Yes
Allow clear liquids: No
11/28/24 07:23
Basic Metabolic Panel IN AM
Complete Blood Count/No Diff IN AM
12/02/24 08:00
Ergocalciferol [Drisdol (Vitamin D2)] 50,000 units PO MO
Abnormal Lab Results
11/27/24 11/27/24
15:26 17:15
WBC 14.6 H 10^3/uL
(4.8-10.8)
RBC 3.52 L 10^6/uL
(4.20-5.40)
Hgb 10.5 L g/dL
(12.0-16.0)
Hct 30.9 L %
(37.0-47.0)
RDW 15.1 H %
(11.5-14.5)
MPV 10.6 H fL
(7.4-10.4)
Abs Immat Gran (auto) 0.1 H 10^3/uL
(0-0.05)
Absolute Neuts (auto) 12.2 H 10^3/uL
(1.4-6.5)
Absolute Monos (auto) 1.0 H 10^3/uL
(0.1-0.6)
Neutrophils % 83.2 H %
(42.2-75.2)
Lymphocytes % 9.3 L %
(20.5-51.1)
BUN 23 H mg/dl
(7-17)
Glucose 125 H mg/dl
(70-99)
Lactic Acid 2.5 H mmol/L
(0.7-2.0)
Total Bilirubin 1.6 H mg/dl
(0.2-1.3)
Creatine Kinase 591 H U/L
(30-135)
Urine Ketones 3+ A
(Negative)
Ur Occult Blood Reflex 1+ A
(Negative)
Urine Nitrite (Reflex) Positive A
(Negative)
Leukocyte Esterase Rfl 1+ A
(Negative)
Urine Bacteria (Reflex) Many A
(Negative)
Urine Albumin (Reflex) 2+ A
(Neg - Trace)
11/27/24 15:26
11/27/24 15:26
Vital Signs
Initial and Last Documented VS:
Initial Vital Signs
Temp Pulse Resp Pulse Ox
98.8 F 79 20 94
11/27/24 15:02 11/27/24 15:02 11/27/24 15:02 11/27/24 15:02
Last Documented Vital Signs
Temp Pulse Resp BP Pulse Ox
98 F 88 17 130/66 92
11/28/24 07:41 11/28/24 07:41 11/28/24 07:41 11/28/24 07:41 11/28/24 07:41
MDM/Problems Addressed
MDM/Problems Addressed:
History/exam/X-ray consistent with right hip fracture. Pt otherwise is afebrile, hemodynamically stable and neurologically intact. Will admit to hospitalist service.
Orthopaedic surgery () notified via tigertext
*Pulse Oximetry
SaO2: 94
Oxygen Mode of Delivery: Room air
Patient hypoxic: no
*EKG
Interpreted by ED Provider?: Yes
EKG Intrepretation Date: 11/27/24
Heart Rate: 76
Rate: normal
Rhythm: sinus
Irwin: normal axis
Interval: normal interval
*Critical Care Note
Total Time (30-74mins, 75-104mins- exclusive of procedures): Not Applicable
ED Attending Note
-
Portions of this chart may have been created with voice recognition software.� Occasional wrong word or��sound alike� substitutions may have occurred due to the inherent limitations of voice recognition software.
Discharge Plan
Departure
Patient Disposition: Admit
Date of Disposition: 11/27/24
Time of Disposition: 17:08
Admit to: Med/Surg
Presentation/result/management discussed w/ accepting MD/DO: Hospitalist
Discharge Problem:
Closed hip fracture
Interventions
Interventions:
*Risk Screen - Suicide Last Done: 11/27/24 15:13
*General Assessment Last Done: 11/27/24 15:13
*Neglect/Abuse Screening Last Done: 11/27/24 15:10
*ED- Fall Risk Assessment Last Done: 11/27/24 15:20
*ED COVID-19 Vaccine History Last Done: 11/27/24 15:10
*Nursing Disposition Last Done: 11/27/24 21:37
ED-Musculoskeletal Assessment Last Done: 11/27/24 15:20
ED- Neurological Assessment Last Done: 11/27/24 15:20
ED-Skin Assessment Last Done: 11/27/24 15:20
Discharge Date and Time
Discharge Date/Time: 11/27/24 21:38
[2024-11-27 15:49] LABS: AST (SGOT) 32 U/L (14-36); Albumin 4.0 g/dl (3.5-5.0); Alkaline Phosphatase 72 U/L (38-126); Calcium 9.4 mg/dl (8.4-10.2); Carbon Dioxide 28 mmol/L (22-30); Chloride 105 mmol/L (98-107); Estimated Creatinine Clearance 68 ml/min; Glucose 125 mg/dl (70-99); Potassium 3.9 mmol/L (3.5-5.1); Sodium 140 mmol/L (135-145); Total Protein 7.0 g/dl (6.3-8.2); eGFR > 60.00
[2024-11-27 15:58] LABS: Blood Urea Nitrogen 23 mg/dl (7-17)
[2024-11-27 16:01] LABS: Troponin I < 0.012 ng/ml
[2024-11-27 16:14] LABS: ALT (SGPT) 21 U/L (0-35)
--- NOTE | 2024-11-27 16:56 | EDCM ---
Received consult, reviewed chart and met with pt bedside in ED. Lives alone in apartment at [facility], has elevator access.
Needs assistance with ADLs and personal care. Ambulates with RW. Does admit to frequent falls.
Has caregiver through [facility] that comes on / for 5 hours a day.
Also receives home PT through [facility].
Confirms prescription coverage.
Current with [facility], has had Sylvie in the past. also hx Marcelina Garcia
CM will continue to follow for all discharge planning needs.
[2024-11-27 17:22] LABS: Urine Character Slightly Cloudy (Clear)
--- NOTE | 2024-11-27 17:22 | HPS.HSE ---
Addendum entered and electronically signed by Chris Marroquin MD 11/27/24 19:36:
This is an addendum to the H&P written by Jinny Hylton on 11/27/2024. �Patient seen and examined independently with [employer]ELOPMENT MANAGER.
74-year-old female past medical history of depression, chronic foot drop, presenting from [facility] after falling down while walking onto the bathroom yesterday evening. �She landed on her right side. �Was unable to stand and would lean on the
ground the entire day. �She was able to reach the phone today and call for help. �Denies loss of consciousness. �Denies headache. �Denies neck pain. �Denies chest pain. �Denies chest pain or shortness of breath. �Denies nausea or vomiting but having
diarrhea since yesterday.�
Vital signs unremarkable. Patient with foul smelling urine.�
Labs show leukocytosis of 14. �Hemoglobin of 10.5 from 13.1 in July. �Lactic acid 2.5. �Creatinine kinase of 590.
Hip x-ray shows right hip fracture.
Patient with right hip fracture. �Pain control, n.p.o. postmidnight. �Orthopedics consulted. Patient low risk of cardiac complications and can proceed to surgery.�
Patient with likely UTI. Also concern for acute gastroenteritis. IV fluids. Check stool studies.� Ceftriaxone. Check stool studies.�
Original Note:
Family Physician
-
Family Physician: TEGAN JULY
Chief Complaint
-
right hip and thigh pain
History of Present Illness
Patient is a 74-year-old female with past medical history of depression, axonal polyneuropathy, deep peroneal neuropathy and anemia who presented to [facility] ED for evaluation of right hip and thigh pain s/p mechanical fall. Patient states she was
dreaming and fell, she does not believe she tripped on anything, does no recall any dizziness, palpitations or syncope. Did state she laid on floor for 1-2 days post fall before being able to get phone to call for help. Reports diarrhea in last day
with loose stools. Denies fever, chills, cough, shortness of breath, chest pain, nausea, vomiting, constipation or urinary symptoms.
Medical History
Past Medical History
Past Medical History: Reports Other
Additional Past Medical History:
depression
axonal polyneuropathy
deep peroneal neuropathy
anemia
Past Surgical History: Reports Other
Additional Past Surgical History:
ORIF radius and ulna fractures
Social History
Tobacco: Non-smoker
Alcohol: None
Drug: None
Living: Alone ([facility])
Family History
Family History: Not pertinent
Allergies / Home Medications
Allergies reflects when Allergies were last updated in [employer].
Home Medications with original date entered in [employer]
Allergy/Medication List:
Allergies
Allergy/AdvReac Type Severity Reaction Status Date / Time
penicillin G Allergy Rash Verified 07/19/24 09:24
Penicillins Allergy Rash Verified 07/19/24 09:24
venom-honey bee Allergy Anaphylaxis Verified 07/19/24 09:24
Home Medications
baclofen 20 mg tablet 20 mg PO TID 03/29/19
ergocalciferol (vitamin D2) 1,250 mcg (50,000 unit) capsule 1,250 mcg PO MO 05/14/24
pregabalin 150 mg capsule (Lyrica) 150 mg PO TID 05/14/24
trazodone 150 mg tablet 300 mg PO HS 05/14/24
0.9 % sodium chloride-decyl glucoside irrigation solution (Sea-Clens Wound Cleanser irrigation solution) 1 ml irrigation BID left foot 11/27/24
Review of Systems
-
History Source: Patient
Constitutional: Denies Fever or Chills
EENT: Denies Sore Throat
Respiratory: Denies Cough or Trouble Breathing
Cardiac: Denies Chest Pain, Diaphoresis, Palpitations or Syncope
Abdomen/GI: Reports Diarrhea; Denies Abdominal Pain, Nausea, Vomiting or Constipated
: Denies Dysuria, Frequency, Difficulty Voiding or Urgency
Musculoskeletal: Denies Edema
Skin: Reports Other (left heel and great toe wounds); Denies Rash
Neurological: Denies Headache, Weakness or Numbness
Physical Exam
Vital Signs
Vital Signs
Temp Pulse Resp Pulse Ox
98.8 F 79 20 94
11/27/24 15:02 11/27/24 15:02 11/27/24 15:02 11/27/24 15:44
Physical Exam
General: Well Developed, Well Nourished, No Apparent Distress, Conversant and Obese
HEENT: NormoCephalic, Moist mucous membranes and Atraumatic
Respiratory: Clear and Non Labored Respirations
Cardiac: S1/S2 and Regular Rhythm; No Murmur, Rub or Gallop
GI: Soft, Non Tender, Non Distended and Normal Bowel Sounds
Rectal: Deferred by Provider
Musculoskeletal: No Clubbing, No Cyanosis, No Edema and Other (right lower extremity shortened and externally rotated )
Skin: Warm and IV/Catheter Site; No Rash
Neuro: Awake, AO x 3 and Nonfocal/grossly intact
Psych: Calm
Laboratory Results
-
11/27/24 15:26
11/27/24 15:26
Laboratory Results
Lactic Acid 2.5 mmol/L (0.7-2.0) H 11/27/24 15:26
Total Bilirubin 1.6 mg/dl (0.2-1.3) H 11/27/24 15:26
AST 32 U/L (14-36) 11/27/24 15:26
ALT 21 U/L (0-35) 11/27/24 15:26
Alkaline Phosphatase 72 U/L (38-126) 11/27/24 15:26
Troponin I < 0.012 ng/ml 11/27/24 15:26
Data Reviewed
-
Medical Tests (Nuc Med, Echo, EKG etc): Report Reviewed by me (EKG: NORMAL SINUS RHYTHM)
Lab Data: Labs Reviewed by me (WBC 14.6, hgb 10.5, hct 30.9, Neut 83.2, Lactic 2.5, CK 591)
Impression/Plan
-
IMPRESSION/PLAN:
#right hip/thigh pain s/p mechanical fall
CK 591
EKG: NORMAL SINUS RHYTHM
Lumbar spine x-ray: report pending
Rt hip x-ray: report pending
- Admit to med/surg
- Consult orthopedics
- pain regimen
- NPO at midnight
#leukocytosis
reports diarrhea x1 day, no urinary complaints
WBC 14.6, Neut 83.2, Lactic 2.5
UA: indicative of UTI
Urine Cx: pending
Stool Cx: pending
- ceftriaxone
- IVFs
#left heel, left great toe wounds
- wound care consult
#depression
- continue trazodone
#axonal polyneuropathy
#deep peroneal neuropathy
- continue baclofen and pregabalin
#anemia
hgb 10.5, hct 30.9
- appears stable, monitor H/H
Code status: DNR
DVT prophylaxis: SCDs
[2024-11-27 17:32] LABS: Urine Red Blood Cell 0-2 /HPF (0-2); Urine Squamous Cell 0-2 /LPF (Few)
--- NOTE | 2024-11-27 20:45 | PTCARENOTE ---
Pt admitted to 427 from ED and pulled over to bed. AAOx3. VSS. C/o severe pain R hip/thigh, incont of urine. Plan of care discussed with pt. Call jackson within reach.
[2024-11-27] MEDS: NSS 1000 IV (21:24)
[2024-11-27] MEDS: STERILE WATER FOR INJECTION 10 ML IV (21:25)
[2024-11-27] MEDS: ROCEPHIN 1000 MG IV (21:25)
[2024-11-27] MEDS: ROXICODONE 5 MG PO (21:41)
[2024-11-27] MEDS: DESYREL 300 MG PO (22:52)
[2024-11-27] MEDS: LYRICA 150 MG PO (22:53)
[2024-11-27] MEDS: LIORESAL 20 MG PO (22:53)
[2024-11-28] VITALS (12 sets, daily range): BP systolic 108–146; BP diastolic 60–90
[2024-11-28] MEDS: MORPHINE SULFATE 2 MG IV ×3 (00:44→09:31)
[2024-11-28] MEDS: NSS 1000 IV ×2 (06:18→20:54)
--- NOTE | 2024-11-28 07:03 | CON.ORTHO ---
Consultation
-
Date/Time Consultation Requested: Nov 28/2047
Date/Time Consultation Performed: Nov 28/0800
Requesting Provider: LELA Hylton
Performing Provider: Elizabeth Garcia
Reason for Consultation: Right hip fracture
Consultation - Orthopedics
History
History of Present Illness:
Patient is a 74 y/o female with H of depression, axonal polyneuropathy, deep peroneal neuropathy and anemia who presented to [facility] ED for evaluation of right hip and thigh pain s/p mechanical fall. Patient states she was dreaming and fell, she does
not believe she tripped on anything. No prodrome, reported headstrike or LOC. Did state she laid on floor for 1-2 days post fall before being able to get phone to call for help. Reports diarrhea in last day with loose stools. Denies fever, chills,
cough, shortness of breath, chest pain, nausea, vomiting, constipation or urinary symptoms. Given xray findings in the ED we have been requested in consultation.
Past Medical History:
depression
axonal polyneuropathy
deep peroneal neuropathy
anemia
Past Surgical History:
ORIF radius and ulna fractures
Social History:
Tobacco: Non-smoker
Alcohol: None
Drug: None
Living: Alone ([facility])
Family History:
Not pertinent
ROS:
12 point negative except for those mentioned in the HPI
Allergies / Home Medications
Allergy/AdvReac Type Severity Reaction Status Date / Time
penicillin G Allergy Rash Verified 07/19/24 09:24
Penicillins Allergy Rash Verified 07/19/24 09:24
venom-honey bee Allergy Anaphylaxis Verified 07/19/24 09:24
�Medication �Instructions �Recorded
baclofen 20 mg tablet 20 mg PO TID 03/29/19
ergocalciferol (vitamin D2) 1,250 1,250 mcg PO MO 05/14/24
mcg (50,000 unit) capsule
pregabalin 150 mg capsule (Lyrica) 150 mg PO TID 05/14/24
trazodone 150 mg tablet 300 mg PO HS 05/14/24
0.9 % sodium chloride-decyl 1 ml irrigation BID left foot 11/27/24
glucoside irrigation solution
(Sea-Clens Wound Cleanser
irrigation solution)
Vital Signs / Lab Results
Temp Pulse Resp BP Pulse Ox
97.9 F 82 22 136/65 95
11/27/24 23:01 11/27/24 23:01 11/27/24 23:01 11/27/24 23:01 11/27/24 23:01
Assessment / Plan
PE: Afeb. Labs pending. Right hip skin intact. Generalized pain to palpation of the right hip. RLE slightly shortened and externally rotated. Deferred range of motion due to known fracture. Knee nontender. Calf soft nontender. DNVI RLE
Xrays: RIGHT IT fracture
Impression: ELLY
Plan: At length bedside discussion with the patient yields her understanding to the nature of her right hip fracture. Discussed all nonoperative and operative management, including all the RBAs. after discussing at length, and accepting all the
risks, the patient has consented to proceed with operative fixation. We discussed the postop and rehab course, and will appreciate CM assistance with disposition, likely SNF. OR aware. Will make her NPO today based on the OR and available
surgeon's schedule, tentatively today via. Dr Rainey for RIGHT hip ORIF. operative site has been marked as the right hip. Surgical and blood consents have been obtained and placed to her chart. any further workup per the primary team (TT sent to
Dr. Dalal) appreciated later this morning, and will hope for an official clearance for surgery later today, or tomorrow. T&S requested. PAM DOUGLAS. Will follow
[2024-11-28] MEDS: LYRICA 150 MG PO ×3 (08:31→21:24)
[2024-11-28] MEDS: LIORESAL 20 MG PO ×3 (08:31→21:24)
[2024-11-28] MEDS: ROXICODONE 5 MG PO ×2 (08:34→15:45)
[2024-11-28 08:35] LABS: Hematocrit 26.9 % (37.0-47.0); Hemoglobin 9.1 g/dL (12.0-16.0); Mean Corp Hgb Conc. 33.8 g/dL (33.0-37.0); Mean Corpuscular Volume 87.9 fL (81.0-99.0); Platelet Count 139 10^3/uL (130-400); Red Cell Dist. Width 15.7 % (11.5-14.5)
[2024-11-28 08:59] LABS: Blood Urea Nitrogen 21 mg/dl (7-17); Calcium 8.3 mg/dl (8.4-10.2); Carbon Dioxide 25 mmol/L (22-30); Chloride 107 mmol/L (98-107); Estimated Creatinine Clearance 69 ml/min; Glucose 87 mg/dl (70-99); Potassium 3.6 mmol/L (3.5-5.1); Sodium 138 mmol/L (135-145); eGFR > 60.00
--- NOTE | 2024-11-28 10:46 | WOUNDNOTE ---
L GREAT TOE DORSAL
--- NOTE | 2024-11-28 10:46 | WOUNDNOTE ---
L 2ND TOE
--- NOTE | 2024-11-28 10:49 | WOUNDNOTE ---
[facility] RN note: Patient admitted with closed R hip fracture
See H&P for complete history.
PMH: 74-year-old female past medical history of depression, chronic foot drop, presenting from [place] [facility] after falling down while walking onto the bathroom yesterday evening.
Wound Location and type/assessment: Patient admitted with: chronic R medial ankle discoloration and dry skin, patient has foot drop and appears to have a deformity to plantar medial foot. Patient states she has a special brace for the foot drop but
does not like to wear it. L great toe with intact scab, suspect abrasion vs arterial, Betadine in use. Patient reports that a MD comes to her house and recommended the Betadine. L 2nd toe with no visible wound, patient has been painting that toe
with Betadine also. L heel is intact, blanchable pink, possible old healed blister. R heel blanchable red. + faint pedal pulses, skin warm and dry. Patient refused turning on L side due to R hip pain. Patient asking for pain medication, nurse Tamara
aware. Patient states she is going to OR later today for hip repair.
Appetite: NPO for OR.
Pressure redistribution devices in place: Accumax, air overlay to be applied later today. Pillow under L leg.
Plan: Painted L great toe with Betadine, will continue daily. Foams applied to heels to protect. left a sacral silicone foam for nurse to apply when patient medicated for pain and able to turn. Asked nurse to notify this food writer if need to come back
to assess sacrum. Will confirm orders with hospitalist and updated nurse.
Updated care plan and will follow as needed.
Note to case management of equipment requested for discharge: no changes.
--- NOTE | 2024-11-28 11:12 | W.PN.HOSP.TC ---
Today's Communication/Plan
-
see outlined plan below
Assessment / Plan
Assessment / Plan
Assessment:
Mechanical fall
R hip fracture
- X:ray: Acute comminuted and angulated right hip fracture
- Orthopedics consulted; R ORIF today
- EKG with NSR; no cardiopulmonary complaints - low to intermediate risk; no additional testing indicated
- prn pain control
Fecal impaction on Xray
- consider Enema for post-op
- oral bowel regimen
mild acute rhabdomyolysis from fall
- CPK 591 to 530; repeat in AM
- IVF
Severe sepsis POA (leukocytosis, tachycardia, lactic acidosis)
UTI
- continue Rocephin, pending urine cultures
- diarrhea; await stool samples if able to provide
Left heel, L great toe wounds - POA
- wound care evaluation
Depression
- on Trazodone
Axonal polyneuropathy
- on Baclofen/Pregabalin
Anemia
- Hb 10.5, monitor
- check anemia workup
DVT ppx: SCDs
Code: DNR/DNI
Anticipated Discharge: > 48 hours
Subjective/Interval History
-
Date of Service: November 28, 2024
resting comfortably, pain controlled
Objective Data
-
Labs:
Laboratory Results
11/28/24
07:23
WBC 12.1 H
Hgb 9.1 L
Hct 26.9 L
Plt Count 139 D
Sodium 138
Potassium 3.6
Chloride 107
Carbon Dioxide 25
BUN 21 H
Creatinine 0.7
Glucose 87
Calcium 8.3 L
Vital Signs:
Vital Signs
Temp Pulse Resp BP Pulse Ox
98 F 88 17 130/66 92
11/28/24 07:41 11/28/24 07:41 11/28/24 07:41 11/28/24 07:41 11/28/24 07:41
Physical Exam
-
General: No Apparent Distress
HEENT: Normocephalic and Atraumatic
Respiratory: Negative Wheezes
Cardiac: Regular Rhythm and S1/S2
GI: Soft and Nontender
Musculoskeletal: No Edema
Skin: Other (RLE slightly shortened and externally rotated)
Neuro: AO x 3
Psych: Calm
Data Reviewed
-
Total Time Spent with Patient (in minutes): 42
Labs: Labs Reviewed by me
[2024-11-28] MEDS: DILAUDID 1 MG IV (12:50)
--- NOTE | 2024-11-28 19:28 | W.IMMPOSTOP ---
Surgical Immed Post Op Note
-
Primary Surgeon: Leland Rainey MD
Assisting Surgeon:
Pre-op Diagnosis: Right hip intertrochanteric fracture
Post-op Diagnosis: Right hip intertrochanteric fracture
Procedure Performed: Intramedullary fixation right proximal femur
Anesthesia Type: general
Specimen / Cultures: none
Estimated Blood Loss: 25mL
Complications: none apparent
Operative Findings: right intertrochanteric fracture
Implants: Gareth Gamma4 [id number] 125 degree neck angle intramedullary nail; 10.5x95mm lag screw; 5x40mm distal interlocking screw
Operative dictation#: [id number]
[2024-11-28] MEDS: DILAUDID 0.5 MG IV ×2 (19:39→20:01)
[2024-11-28] MEDS: SENOKOT PO (20:53)
[2024-11-28] MEDS: COLACE PO (20:53)
[2024-11-28] MEDS: DESYREL 300 MG PO (21:22)
[2024-11-28] MEDS: STERILE WATER FOR INJECTION 10 ML IV (21:22)
[2024-11-28] MEDS: ROCEPHIN 1000 MG IV (21:22)
[2024-11-29] VITALS (11 sets, daily range): BP systolic 97–130; BP diastolic 49–69; PULSE 68; O2SAT 94–96; BMI 28.2
[2024-11-29] MEDS: ANCEF 5 IV ×2 (01:18→09:59)
[2024-11-29] MEDS: ROXICODONE 10 MG PO ×2 (01:55→06:46)
[2024-11-29] MEDS: ASPIRIN 325 MG PO ×2 (05:26→08:14)
[2024-11-29] MEDS: NSS 1000 IV ×2 (06:50→18:25)
[2024-11-29] MEDS: MIRALAX 17 GRAMS PO (08:13)
[2024-11-29] MEDS: LIORESAL 20 MG PO ×3 (08:13→22:05)
[2024-11-29] MEDS: LYRICA 150 MG PO ×3 (08:14→22:05)
[2024-11-29] MEDS: SENOKOT PO ×2 (08:16→20:17)
[2024-11-29] MEDS: COLACE PO ×2 (08:16→20:17)
--- NOTE | 2024-11-29 08:44 | W.PN.ORTHO ---
Today's Communication / Plan
-
Appreciate primary team, continue treatment
Appreciate CM with disposition, ?SNF?
Trend Hgb
Continue WBAT B/L LEs on walker
PT/OT
ASA 325mg daily x 4 weeks for DVT ppx
Dressing to remain 7-10 days
Tomas out in 2 weeks (SNF or office)
If tomas out at SNF outpatient orthopedic follow-up in 4 weeks for x-rays and clinical exam
Will follow
Assessment
.
Distal Motor Intact: Yes
Dressing:
Clean, dry and intact. Contained strikethrough in proximal primaseal.
Assessment:
POD#1 Right hip ORIF
Plan
.
Surgery / Date: Right hip gamma Nov 28 ([facility])
DVT Prophylaxis: Aspirin
Activity:
Out of bed. WBAT B/L LEs on walker
PT/OT
Discharge Plan: SNF (appreciate CM) and Other
Subjective
.
.:
Patient resting comfortably. Slept well
Vital Signs and Labs
.
Vital Signs and Labs:
Temp Pulse Resp BP Pulse Ox
97.6 F 66 16 97/57 94
11/29/24 07:15 11/29/24 07:15 11/29/24 07:15 11/29/24 07:15 11/29/24 07:50
[2024-11-29 08:55] LABS: INR 1.11; PT 14.6 Sec (11.4-14.6)
[2024-11-29 08:56] LABS: APTT 31.4 Sec (23.4-35.0)
[2024-11-29 09:02] LABS: Hematocrit 22.5 % (37.0-47.0); Hemoglobin 7.3 g/dL (12.0-16.0); Mean Corp Hgb Conc. 32.4 g/dL (33.0-37.0); Mean Corpuscular Volume 87.5 fL (81.0-99.0); Platelet Count 129 10^3/uL (130-400); Red Cell Dist. Width 15.6 % (11.5-14.5)
[2024-11-29 09:09] LABS: Blood Urea Nitrogen 16 mg/dl (7-17); Calcium 7.5 mg/dl (8.4-10.2); Carbon Dioxide 25 mmol/L (22-30); Chloride 110 mmol/L (98-107); Estimated Creatinine Clearance 77 ml/min; Glucose 113 mg/dl (70-99); Iron 22 ug/dl (37-170); Potassium 4.1 mmol/L (3.5-5.1); Sodium 139 mmol/L (135-145); eGFR > 60.00
[2024-11-29 09:17] LABS: Total Iron Binding Capacity 204 ug/dl (265-497)
--- NOTE | 2024-11-29 09:41 | PN.CDI ---
CDI
- -
CDI:
Physician Documentation Request
Admit Date: 11/27/24 18:27
Dear Doctor Mulugeta,
Patient admitted following a fall.
ER Physician Documentation: 'falling down, while walking to bathroom yesterday evening, landing on her right side. Patient was unable to stand up and laid on the ground entire day.'
11/28 Hospitalist PN: 'mild acute rhabdomyolysis from fall - CPK 591 to 530; repeat in AM'
Based on the above, could you clarify in the progress notes, the appropriate diagnosis, if significant, that supports the above abnormalities and additional evaluation, monitoring and/or treatment rendered:
Traumatic rhabdomyolysis
Nontraumatic rhabdomyolysis
Other
Use of terms such as suspected, likely, concern for, or probable (associated with a specific diagnosis that is being evaluated, monitored, or treated as if it exists) are acceptable and can be coded in the inpatient setting, when documented at the
time of discharge.
Thank you,
Shari Porter RN, BSN
CDI Specialist
Available via [place] text
Please use your independent medical judgment in providing your response.
[2024-11-29 09:43] LABS: Ferritin 96.2 ng/ml (11.1-264.0)
--- NOTE | 2024-11-29 10:06 | PTCARENOTE ---
pt refusing blood product at this moment. denies any symptoms currently. MD Gibson made aware. plan of care continues to be followed.
--- NOTE | 2024-11-29 10:09 | PN.CDI ---
CDI
- -
CDI:
Physician Documentation Request
Admit Date: 11/27/24 18:27
Dear Doctor,
Patient admitted for hip fracture.
11/28 Immediate post-op report: 'Estimated Blood Loss: 25mL'
Laboratory Tests
11/27/24 11/28/24 11/29/24
15:26 07:23 07:59
Hgb 10.5 L 9.1 L 7.3 L
Hct 30.9 L 26.9 L 22.5 L
Based on the above, could you clarify in the progress notes, the appropriate diagnosis, if significant, that supports the above abnormalities and additional evaluation, monitoring and/or treatment rendered:
Acute blood loss anemia
Anemia (please specify type)
Other
Use of terms such as suspected, likely, concern for, or probable (associated with a specific diagnosis that is being evaluated, monitored, or treated as if it exists) are acceptable and can be coded in the inpatient setting, when documented at the
time of discharge.
Thank you,
Shari Porter RN, BSN
CDI Specialist
Available via [place] text
Please use your independent medical judgment in providing your response.
[2024-11-29 10:15] LABS: Folate 2.6 ng/ml (2.76-20); Vitamin B12 233 pg/ml (239-931)
[2024-11-29] MEDS: NSS IV (13:16)
[2024-11-29] MEDS: DILAUDID 0.25 MG IV ×3 (13:18→20:31)
--- NOTE | 2024-11-29 14:01 | W.PN.HOSP.TC ---
Today's Communication/Plan
-
blood
oral B12/folate replacement
cap IVF
monitor diet tolerance
Abx for UTI
PT/OT - for SNF placement
Assessment / Plan
Assessment / Plan
Assessment:
Mechanical fall
R hip fracture
- X:ray: Acute comminuted and angulated right hip fracture
- s/p Intramedullary fixation right proximal femur 11/28
- prn pain control
- PT/OT - SNF recommended
- ASA for DVT ppx
- F/u Ortho recs
acute blood loss anemia
- Hb 7.3
- 1 unit PRBC ordered
- also with low folate and low b12 - replacement ordered
Fecal impaction on Xray
- oral bowel regimen; last BM 11/29
mild acute traumatic rhabdomyolysis from fall
- CPK 591 to 530 to 363
- cap IVF
Severe sepsis POA (leukocytosis, tachycardia, lactic acidosis)
gram negative UTI
- continue Rocephin day 2, pending urine cultures
Diarrhea
- C. Diff negative
- tolerating reg diet
Left heel, L great toe wounds - POA
- wound care evaluation
Depression
- on Trazodone
Axonal polyneuropathy
- on Baclofen/Pregabalin
Thrombocytopenia, consumptive in setting of bleeding
- monitor
DVT ppx: SCDs + ASA
Code: DNR/DNI
Anticipated Discharge: > 48 hours
Subjective/Interval History
-
Date of Service: November 29, 2024
agreeable to 1 unit PRBC
Objective Data
-
Labs:
Laboratory Results
11/29/24
07:59
WBC 8.8
Hgb 7.3 L
Hct 22.5 L
Plt Count 129 L
PT 14.6
INR 1.11
APTT 31.4
Sodium 139
Potassium 4.1
Chloride 110 H
Carbon Dioxide 25
BUN 16
Creatinine 0.7
Glucose 113 H
Calcium 7.5 L
Vital Signs:
Vital Signs
Temp Pulse Resp BP Pulse Ox
98.1 F 72 16 108/55 97
11/29/24 11:04 11/29/24 11:04 11/29/24 11:04 11/29/24 11:04 11/29/24 11:04
I&O
11/28/24 11/29/24 11/30/24
06:59 06:59 06:59
Intake Total 1680 / 1680
Balance 1680 / 1680
Physical Exam
-
General: No Apparent Distress
HEENT: Normocephalic and Atraumatic
Respiratory: Negative Wheezes
Cardiac: Regular Rhythm and S1/S2
GI: Soft and Nontender
Genito-urinary: No Costovertebral Tender
Musculoskeletal: No Edema
Neuro: AO x 3
Hematologic / Lymphatic: No Lymphadenopathy
Psych: Calm
Data Reviewed
-
Total Time Spent with Patient (in minutes): 45
Labs: Labs Reviewed by me
[2024-11-29] MEDS: FOLVITE 1 MG PO (14:22)
[2024-11-29] MEDS: VITAMIN B-12 1000 MCG PO (14:22)
[2024-11-29] MEDS: DESYREL 300 MG PO (22:01)
[2024-11-29] MEDS: STERILE WATER FOR INJECTION 10 ML IV (22:02)
[2024-11-29] MEDS: ROCEPHIN 1000 MG IV (22:03)
[2024-11-30] MEDS: ROXICODONE 10 MG PO ×4 (02:03→19:51)
[2024-11-30 03:49] VITALS: BMI 28.2
[2024-11-30 08:00] VITALS: BP 138/68
[2024-11-30] MEDS: FOLVITE 1 MG PO (08:09)
[2024-11-30] MEDS: MIRALAX 17 GRAMS PO (08:09)
[2024-11-30] MEDS: ASPIRIN 325 MG PO (08:09)
[2024-11-30] MEDS: LIORESAL 20 MG PO ×3 (08:09→23:03)
[2024-11-30] MEDS: VITAMIN B-12 1000 MCG PO (08:09)
[2024-11-30] MEDS: LYRICA 150 MG PO ×3 (08:09→23:03)
[2024-11-30] MEDS: COLACE 100 MG PO ×2 (08:19→19:47)
[2024-11-30] MEDS: SENOKOT 8.6 MG PO ×2 (08:19→19:47)
[2024-11-30 08:54] LABS: Hematocrit 25.6 % (37.0-47.0); Hemoglobin 8.5 g/dL (12.0-16.0); Mean Corp Hgb Conc. 33.2 g/dL (33.0-37.0); Mean Corpuscular Volume 87.7 fL (81.0-99.0); Platelet Count 131 10^3/uL (130-400); Red Cell Dist. Width 15.2 % (11.5-14.5)
--- NOTE | 2024-11-30 09:59 | W.PN.ORTHO ---
Today's Communication / Plan
-
PT/OT
Weightbearing as tolerated with walker
Aspirin for DVT prophylactics along with mechanical devices
jail facility once medically stable
Skin clip removal 2 weeks postop
Follow-up with orthopedics 1 month postop for x-ray
Orthopedics to sign off for now
Assessment
.
Distal Motor Intact: Yes
Dressing:
Clean, dry and intact.
Plan
.
Surgery / Date: Right hip gamma Nov 28 ([facility])
DVT Prophylaxis: Aspirin
Activity:
Out of bed.
PT/OT
Discharge Plan: SNF
Subjective
.
.:
Patient resting comfortably.
Vital Signs and Labs
.
Vital Signs and Labs:
Lab Results
11/30/24 08:08
Temp Pulse Resp BP Pulse Ox
98.0 F 69 18 138/68 95
11/30/24 08:00 11/30/24 08:00 11/30/24 08:00 11/30/24 08:00 11/30/24 08:00
PT 14.6 Sec (11.4-14.6) 11/29/24 07:59
INR 1.11 11/29/24 07:59
[2024-11-30 10:05] LABS: Blood Urea Nitrogen 14 mg/dl (7-17); Calcium 7.8 mg/dl (8.4-10.2); Carbon Dioxide 26 mmol/L (22-30); Chloride 111 mmol/L (98-107); Estimated Creatinine Clearance 77 ml/min; Glucose 95 mg/dl (70-99); Potassium 3.8 mmol/L (3.5-5.1); Sodium 140 mmol/L (135-145); eGFR > 60.00
--- NOTE | 2024-11-30 12:13 | W.PN.HOSP.TC ---
Today's Communication/Plan
-
anemia substrate replacement
bowel regimen, pain control, PT/OT
SNF dc planning
Assessment / Plan
Assessment / Plan
Assessment:
Mechanical fall
R hip fracture
- X:ray: Acute comminuted and angulated right hip fracture
- s/p Intramedullary fixation right proximal femur 11/28
- prn pain control
- PT/OT - SNF recommended
- ASA for DVT ppx
- F/u Ortho recs
acute blood loss anemia
- s/p 1 unit PRBC, Hb 8.5
- also with low folate and low b12 - replacement ordered orally
- also with low iron sats; IV iron ordered
Fecal impaction on Xray
- oral bowel regimen; last BM 11/29
mild acute traumatic rhabdomyolysis from fall
- CPK 591 to 530 to 363
Severe sepsis POA (leukocytosis, tachycardia, lactic acidosis)
E. coli ESBL UTI
- continue Rocephin day 2, pending urine cultures
Diarrhea
- C. Diff negative
- tolerating reg diet
Left heel, L great toe wounds - POA
- wound care evaluation
Depression
- on Trazodone
Axonal polyneuropathy
- on Baclofen/Pregabalin
Thrombocytopenia, consumptive in setting of bleeding
- monitor
DVT ppx: SCDs + ASA
Code: DNR/DNI
Anticipated Discharge: > 48 hours
Subjective/Interval History
-
Date of Service: November 30, 2024
resting comfortably, pain controlled
Hb 8.5
Objective Data
-
Labs:
Laboratory Results
11/30/24
08:08
WBC 8.5
Hgb 8.5 L
Hct 25.6 L
Plt Count 131
Sodium 140
Potassium 3.8
Chloride 111 H
Carbon Dioxide 26
BUN 14
Creatinine 0.7
Glucose 95
Calcium 7.8 L
Vital Signs:
Vital Signs
Temp Pulse Resp BP Pulse Ox
98.0 F 69 18 138/68 95
11/30/24 08:00 11/30/24 08:00 11/30/24 08:00 11/30/24 08:00 11/30/24 08:00
I&O
11/29/24 11/30/24 12/01/24
06:59 06:59 06:59
Intake Total 1680 / 1680 2670 / 2670
Output Total 300 / 300
Balance 1680 / 1680 2670 / 2670 -300 / -300
Physical Exam
-
General: No Apparent Distress
HEENT: Normocephalic and Atraumatic
Respiratory: Negative Wheezes
Cardiac: Regular Rhythm and S1/S2
GI: Soft
Musculoskeletal: No Edema
Neuro: AO x 3
Psych: Calm
Data Reviewed
-
Total Time Spent with Patient (in minutes): 42
Labs: Labs Reviewed by me
--- NOTE | 2024-11-30 12:26 | CM ---
Per Attending patient is stable for discharge to SNF pending bed availability
Met with patient at bedside; her SNF site preferences are [facility] and [facility]; referrals sent via [facility]
Plan: Discharge to SNF pending bed availability
[2024-11-30] MEDS: FERRLECIT 110 MG IV (14:08)
[2024-11-30 15:38] VITALS: BP 134/67; PULSE 75; O2SAT 93
[2024-11-30 16:00] VITALS: BP 128/60
[2024-11-30] MEDS: DESYREL 300 MG PO (22:59)
[2024-11-30 23:15] VITALS: BP 115/53
[2024-12-01] MEDS: ROXICODONE 10 MG PO ×2 (05:44→12:29)
[2024-12-01 08:26] VITALS: BP 134/83
[2024-12-01] MEDS: VITAMIN B-12 1000 MCG PO (08:26)
[2024-12-01] MEDS: LYRICA 150 MG PO ×3 (08:27→20:13)
[2024-12-01] MEDS: SENOKOT 8.6 MG PO ×2 (08:27→20:13)
[2024-12-01] MEDS: INVANZ 60 MG IV (08:27)
[2024-12-01] MEDS: FOLVITE 1 MG PO (08:27)
[2024-12-01] MEDS: LIORESAL 20 MG PO ×3 (08:27→20:13)
[2024-12-01] MEDS: ASPIRIN 325 MG PO (08:27)
[2024-12-01] MEDS: MIRALAX 17 GRAMS PO (08:27)
[2024-12-01] MEDS: COLACE 100 MG PO ×2 (08:27→20:13)
[2024-12-01 08:36] LABS: Hematocrit 25.9 % (37.0-47.0); Hemoglobin 8.5 g/dL (12.0-16.0); Mean Corp Hgb Conc. 32.8 g/dL (33.0-37.0); Mean Corpuscular Volume 90.6 fL (81.0-99.0); Platelet Count 139 10^3/uL (130-400); Red Cell Dist. Width 15.6 % (11.5-14.5)
[2024-12-01 09:06] LABS: Blood Urea Nitrogen 12 mg/dl (7-17); Calcium 8.1 mg/dl (8.4-10.2); Carbon Dioxide 30 mmol/L (22-30); Chloride 110 mmol/L (98-107); Estimated Creatinine Clearance 77 ml/min; Glucose 93 mg/dl (70-99); Potassium 3.7 mmol/L (3.5-5.1); Sodium 140 mmol/L (135-145); eGFR > 60.00
--- NOTE | 2024-12-01 12:41 | W.PN.HOSP.TC ---
Today's Communication/Plan
-
continue Abx for UTI
DC planning to SNF
Assessment / Plan
Assessment / Plan
Assessment:
Mechanical fall
R hip fracture
- X:ray: Acute comminuted and angulated right hip fracture
- s/p Intramedullary fixation right proximal femur 11/28
- prn pain control
- PT/OT - SNF recommended
- ASA for DVT ppx
- F/u Ortho recs
acute blood loss anemia
- s/p 1 unit PRBC, Hb 8.5
- also with low folate and low b12 - oral replacement orally
- also with low iron sats; IV iron ordered while in hospital; transition to oral at discharge
Fecal impaction on Xray
- oral bowel regimen; last BM 11/29
mild acute traumatic rhabdomyolysis from fall
- CPK 591 to 530 to 363
Severe sepsis POA (leukocytosis, tachycardia, lactic acidosis)
E. coli ESBL UTI
- Start Ertapenem, day 1
- Micro lab performing 'E-test' for Fosfomycin sensitivity
Diarrhea
- C. Diff negative
- tolerating reg diet
Left heel, L great toe wounds - POA
- wound care following
Depression
- on Trazodone
Axonal polyneuropathy
- on Baclofen/Pregabalin
Thrombocytopenia, consumptive in setting of bleeding
- monitor
DVT ppx: SCDs + ASA
Code: DNR/DNI
Anticipated Discharge: > 48 hours
Subjective/Interval History
-
Date of Service: December 01, 2024
no new complaints
Hb stable 8.5
Objective Data
-
Labs:
Laboratory Results
12/01/24
08:12
WBC 7.0
Hgb 8.5 L
Hct 25.9 L
Plt Count 139
Sodium 140
Potassium 3.7
Chloride 110 H
Carbon Dioxide 30
BUN 12
Creatinine 0.7
Glucose 93
Calcium 8.1 L
Vital Signs:
Vital Signs
Temp Pulse Resp BP Pulse Ox
97.8 F 71 20 134/83 94
12/01/24 08:26 12/01/24 08:26 12/01/24 08:26 12/01/24 08:26 12/01/24 08:26
I&O
11/30/24 12/01/24 12/02/24
06:59 06:59 06:59
Intake Total 2670 / 2670 530 / 530 300 / 300
Output Total 300 / 300
Balance 2670 / 2670 230 / 230 300 / 300
Physical Exam
-
General: No Apparent Distress
HEENT: Normocephalic and Atraumatic
Respiratory: Negative Wheezes
Cardiac: Regular Rhythm and S1/S2
GI: Soft
Genito-urinary: No Costovertebral Tender
Musculoskeletal: No Edema
Neuro: AO x 3
Psych: Calm
Data Reviewed
-
Total Time Spent with Patient (in minutes): 42
Labs: Labs Reviewed by me
[2024-12-01] MEDS: FERRLECIT 110 MG IV (13:43)
[2024-12-01] MEDS: DILAUDID 0.25 MG IV ×3 (15:42→23:28)
[2024-12-01 16:36] VITALS: BP 124/70
[2024-12-01] MEDS: DESYREL 300 MG PO (20:13)
[2024-12-01 23:00] VITALS: BP 155/72
[2024-12-02] MEDS: ASPIRIN 325 MG PO (07:58)
[2024-12-02] MEDS: LYRICA 150 MG PO (07:58)
[2024-12-02] MEDS: FOLVITE 1 MG PO (07:58)
[2024-12-02] MEDS: COLACE 100 MG PO (07:58)
[2024-12-02] MEDS: MIRALAX PO (07:59)
[2024-12-02] MEDS: LIORESAL 20 MG PO (07:59)
[2024-12-02] MEDS: SENOKOT 8.6 MG PO (07:59)
[2024-12-02 08:00] VITALS: BP 138/72
[2024-12-02 08:43] LABS: Hematocrit 26.6 % (37.0-47.0); Hemoglobin 8.7 g/dL (12.0-16.0); Mean Corp Hgb Conc. 32.7 g/dL (33.0-37.0); Mean Corpuscular Volume 88.7 fL (81.0-99.0); Platelet Count 170 10^3/uL (130-400); Red Cell Dist. Width 15.7 % (11.5-14.5)
[2024-12-02] MEDS: ROXICODONE 10 MG PO ×2 (09:28→14:00)
[2024-12-02] MEDS: INVANZ 60 MG IV (09:28)
[2024-12-02] MEDS: VITAMIN B-12 1000 MCG PO (09:28)
[2024-12-02] MEDS: DRISDOL (VITAMIN D2) 50000 UNITS PO (09:28)
[2024-12-02 10:12] VITALS: BP 148/81; PULSE 78; O2SAT 96
--- NOTE | 2024-12-02 10:56 | CM ---
Chart reviewed. Referrals sent to SNF over the weekend. [facility] declined, has no beds today. [facility] accepted, can offer patient bed today per [facility] director.
Spoke w/ patient and hospitalist bedside. Patient updated on d/c today. Patient stated she is working on getting her foot brace from home as it provides her w/ stability. Patient stated she has a drop in her R foot and that it is flat without the
brace.
IMM verbally reviewed, copy provided, copy on chart
Patient will require ambulance transport, forms on chart
[facility]
Report: [phone] (4th floor)

Plan: D/c to [facility] today
[2024-12-02 12:15] VITALS: BP 125/74
[2024-12-02 13:05] LABS: Blood Urea Nitrogen 11 mg/dl (7-17); Calcium 8.3 mg/dl (8.4-10.2); Carbon Dioxide 30 mmol/L (22-30); Chloride 106 mmol/L (98-107); Estimated Creatinine Clearance 77 ml/min; Glucose 98 mg/dl (70-99); Potassium 4.0 mmol/L (3.5-5.1); Sodium 138 mmol/L (135-145); eGFR > 60.00
[2024-12-02] MEDS: MONUROL 3 GM PO (13:36)
--- NOTE | 2024-12-02 16:38 | W.DCSUMMARY ---
Discharge Summary
Discharge Data
Date of Admission: 11/27/24
Date of Discharge: 12/02/24
-
Pending Results: No
Hospital Course
Discharging Physician : Dr Yaya Ordoñez
Disposition : [facility]
Primary care physician : Unknown
Principal Discharge diagnosis :
Mechanical fall
Right hip fracture
Acute blood loss anemia
Constipation
Sepsis from extended-spectrum beta-lactamase producing eschericia coli urinary tract infection
Antibiotic use related diarrhea
Chronic Discharge diagnosis :
Depression
Axonal polyneuropathy
Thrombocytopenia
Chronic left heel/toe wound
Physical examination:
GEN: aox3
HEENT: moist mucus membrane, PERRLA/EOMI, no thryomegaly or LNpathy
Chest: Clear to auscultation
Heart: N s1/s2, RRR, no rub/mrumur/gallops
Abd: N BS, soft, nontender, nondistended, no organomegaly
Neuro: aox3 No motor deficit
Ext: Right hip dressing in place
Hospital Course :
Patient is a 74-year-old female with no mentioned past medical history came to ER after having a mechanical fall while walking out of bathroom. No reported loss of consciousness. Patient apparently was on ground for prolonged time and was finally
able to call for help. In ER evaluation showing patient having right hip fracture. Orthopedic surgery involved in care and patient underwent intramedullary nailing on 11/28. Postoperatively patient required 1 unit of blood transfusion. Patient
recommended to be maintained on aspirin for 4 weeks.
Patient was also noted to having leukocytosis and elevated heart rate at admission. Patient was maintained on empiric antibiotic for possible UTI. Urine culture later showing ESBL E. coli isolated. Patient was provided 2 doses of ertapenem and
followed by fosfomycin.
Patient did some diarrhea likely from antibiotic. C. difficile test was negative.
Post medical stabilization patient was discharged to longterm facility for rehab.
Important imaging findings :
None
Procedure findings :
None
Discharge Plan
-
Patient Disposition: [facility]/SNF
Discharge Diagnosis/Procedures: Right hip fracture, Acute blood loss anemia, ESBL Ecoli in urine
Condition: Fair
Diet: Regular
Activity: As tolerated
Driving Restrictions: No driving
Bathing Restrictions: OK to Shower
Blood Work: CBC in 4 weeks
Activity Restrictions/Additional Instructions:
Wound Care Instructions
L great toe: wash foot with soap and water, paint dorsal toe with Betadine daily.
Skin clip removal 2 weeks postop
Follow-up with orthopedics 1 month postop for x-ray
Referrals:
Leland Rainey MD [Active, Orthopedics] - in three to four weeks
UNKNOWN - PT DOES,NOT KNOW [Family Provider]
Prescriptions:
New
aspirin 325 mg Tablet
325 mg PO DAILY Qty: 28 0RF
Rx Instructions:
For 4 weeks, Last dose 12/30/24
polyethylene glycol 3350 17 gram Powder In Packet
17 g PO DAILY Qty: 30 0RF
sennosides [Zeenat-rg] 8.6 mg Tablet
8.6 mg PO BID Qty: 60 0RF
acetaminophen 325 mg Tablet
650 mg PO Q4HPRN PRN (Reason: mild pain/DAMON/temp> 100.4F) Qty: 30 0RF
pregabalin [Lyrica] 150 mg capsule
150 mg PO TID Qty: 9 0RF
oxycodone 10 mg tablet
10 mg PO Q8H PRN (Reason: sev pain) Qty: 14 0RF
Rx Instructions:
Take half tablet for moderate pain
Continued
baclofen 20 MG tablet
20 mg PO TID
trazodone 150 mg Tablet
300 mg PO HS
ergocalciferol (vitamin D2) 1,250 mcg (50,000 unit) Capsule
1,250 mcg PO MO
Discontinued
pregabalin [Lyrica] 150 MG capsule
150 mg PO TID
Sea-Clens Wound Cleanser Solution
1 ml IRRIGATION BID
Discharge Orders:
Discharge Patient (As Directed); Ordered 12/02/24
Ordered By: Yaya Ordoñez
Discharge Date and Time
Discharge Date/Time: 12/02/24 14:10
Print Language: BULGARIAN
== END 2024-12-02 14:10 | DRG 480 ==
LOC: 4 WEST ACU 18:27
PROVIDERS: Emergency Medicine; Internal Medicine; Nurse Practitioner Family; Student in an Organized Health Care Education/Training Program; ADMITTING PHYSICIAN Hospitalist; ATTENDING PHYSICIAN Hospitalist; EMERGENCY PHYSICIAN Emergency Medicine; OTHER PHYSICIAN Orthopaedic Surgery
PROC: 0QS606Z Reposition Right Upper Femur with Intramedullary Internal Fixation Device, Open Approach (ICD-10-PCS; 2024-11-28)
DX: S72.141A Displaced intertrochanteric fracture of right femur, initial encounter for closed fracture (principal); A41.51 Sepsis due to Escherichia coli [E. coli]; R65.20 Severe sepsis without septic shock; D62 Acute posthemorrhagic anemia; N39.0 Urinary tract infection, site not specified; Z16.12 Extended spectrum beta lactamase (ESBL) resistance; W18.30XA Fall on same level, unspecified, initial encounter; K56.41 Fecal impaction; F32.A Depression, unspecified; G62.9 Polyneuropathy, unspecified; Z66 Do not resuscitate; Z79.899 Other long term (current) drug therapy; Z87.891 Personal history of nicotine dependence
CPT/HCPCS: 72100; 73502; 73522; 76000; 80048; 80053; 81003; 81015; 82550; 82607; 82728; 82746; 83540; 83550; 83605; 84484; 85025; 85027; 85610; 85730; 86850; 86900; 86901; 86920; 87045; 87046; 87077; 87086; 87181; 87186; 87324; 87427; 87449; 93005; 96374; 97163; 97167; 97530; 97535; 99285; J1335; J2916; P9016

== ENCOUNTER → 2024-12-03 11:03 | Outpatient (REF) | payer OTHER, MEDICARE, SELFPAY ==
[2024-12-03 11:51] LABS: Hematocrit 25.4 % (37.0-47.0); Hemoglobin 8.3 g/dL (12.0-16.0); Mean Corp Hgb Conc. 32.7 g/dL (33.0-37.0); Mean Corpuscular Volume 91.7 fL (81.0-99.0); Nucleated Red Blood Cells % 0 %; Platelet Count 186 10^3/uL (130-400); Red Cell Dist. Width 15.8 % (11.5-14.5)
[2024-12-03 11:58] LABS: Blood Urea Nitrogen 11 mg/dl (7-17); Calcium 7.8 mg/dl (8.4-10.2); Carbon Dioxide 30 mmol/L (22-30); Chloride 105 mmol/L (98-107); Glucose 90 mg/dl (70-99); Potassium 3.9 mmol/L (3.5-5.1); Sodium 138 mmol/L (135-145); eGFR > 60.00
== END ==
LOC: OLABP 11:03
PROVIDERS: ATTENDING PHYSICIAN Family Medicine
DX: D62 Acute posthemorrhagic anemia (principal); D69.6 Thrombocytopenia, unspecified; F32.A Depression, unspecified; G47.00 Insomnia, unspecified; M21.371 Foot drop, right foot; M62.82 Rhabdomyolysis; N39.0 Urinary tract infection, site not specified
CPT/HCPCS: 36415; 80048; 85025

== ENCOUNTER → 2024-12-09 10:26 | Outpatient (REF) | payer OTHER, MEDICARE, SELFPAY ==
[2024-12-09 11:37] LABS: Hematocrit 27.9 % (37.0-47.0); Hemoglobin 8.6 g/dL (12.0-16.0); Mean Corp Hgb Conc. 30.8 g/dL (33.0-37.0); Mean Corpuscular Volume 93.6 fL (81.0-99.0); Nucleated Red Blood Cells % 0 %; Platelet Count 306 10^3/uL (130-400); Red Cell Dist. Width 16.6 % (11.5-14.5)
== END ==
LOC: OLABP 10:26
PROVIDERS: ATTENDING PHYSICIAN Family Medicine
DX: D62 Acute posthemorrhagic anemia (principal); D69.6 Thrombocytopenia, unspecified; G47.00 Insomnia, unspecified; M21.371 Foot drop, right foot; M62.82 Rhabdomyolysis; N39.0 Urinary tract infection, site not specified; Z16.12 Extended spectrum beta lactamase (ESBL) resistance
CPT/HCPCS: 36415; 85025

== ENCOUNTER → 2024-12-13 10:17 | Outpatient (REF) | payer OTHER, MEDICARE, SELFPAY ==
[2024-12-13 10:50] LABS: Blood Urea Nitrogen 24 mg/dl (7-17); Calcium 9.3 mg/dl (8.4-10.2); Carbon Dioxide 30 mmol/L (22-30); Chloride 105 mmol/L (98-107); Glucose 85 mg/dl (70-99); Potassium 4.2 mmol/L (3.5-5.1); Sodium 137 mmol/L (135-145); eGFR > 60.00
== END ==
LOC: OLABP 10:17
PROVIDERS: ATTENDING PHYSICIAN Family Medicine
DX: D69.6 Thrombocytopenia, unspecified (principal); F32.A Depression, unspecified; G47.00 Insomnia, unspecified; M21.371 Foot drop, right foot; M62.82 Rhabdomyolysis; N39.0 Urinary tract infection, site not specified; Z16.12 Extended spectrum beta lactamase (ESBL) resistance
CPT/HCPCS: 36415; 80048

== ENCOUNTER → 2024-12-17 10:38 | Outpatient (REF) | payer OTHER, MEDICARE, SELFPAY ==
[2024-12-17 11:14] LABS: Hematocrit 28.8 % (37.0-47.0); Hemoglobin 9.2 g/dL (12.0-16.0); Mean Corp Hgb Conc. 31.9 g/dL (33.0-37.0); Mean Corpuscular Volume 96.3 fL (81.0-99.0); Nucleated Red Blood Cells % 0 %; Platelet Count 251 10^3/uL (130-400); Red Cell Dist. Width 16.4 % (11.5-14.5)
== END ==
LOC: OLABP 10:38
PROVIDERS: ATTENDING PHYSICIAN Family Medicine
DX: S72.91XD Unspecified fracture of right femur, subsequent encounter for closed fracture with routine healing (principal); D62 Acute posthemorrhagic anemia; D69.6 Thrombocytopenia, unspecified; F32.A Depression, unspecified; G47.00 Insomnia, unspecified; G62.9 Polyneuropathy, unspecified; M21.371 Foot drop, right foot; M62.82 Rhabdomyolysis; N39.0 Urinary tract infection, site not specified; Z16.12 Extended spectrum beta lactamase (ESBL) resistance
CPT/HCPCS: 36415; 85025

== ENCOUNTER → 2024-12-24 12:38 | Outpatient (REF) | payer OTHER, MEDICARE, SELFPAY ==
[2024-12-24 13:02] LABS: Hematocrit 30.7 % (37.0-47.0); Hemoglobin 9.9 g/dL (12.0-16.0); Mean Corp Hgb Conc. 32.2 g/dL (33.0-37.0); Mean Corpuscular Volume 95.0 fL (81.0-99.0); Platelet Count 196 10^3/uL (130-400); Red Cell Dist. Width 16.7 % (11.5-14.5)
[2024-12-24 13:52] LABS: Nucleated Red Blood Cells % 0 %
== END ==
LOC: OLABP 12:38
PROVIDERS: ATTENDING PHYSICIAN Family Medicine
DX: S72.91XD Unspecified fracture of right femur, subsequent encounter for closed fracture with routine healing (principal); D62 Acute posthemorrhagic anemia; D69.6 Thrombocytopenia, unspecified; F32.A Depression, unspecified; G47.00 Insomnia, unspecified; G62.9 Polyneuropathy, unspecified; M21.371 Foot drop, right foot; M62.82 Rhabdomyolysis; N39.0 Urinary tract infection, site not specified; Z16.12 Extended spectrum beta lactamase (ESBL) resistance
CPT/HCPCS: 36415; 85025

== ENCOUNTER → 2025-01-01 10:40 | Outpatient (REF) | payer OTHER, MEDICARE, SELFPAY ==
[2025-01-01 11:04] LABS: Hematocrit 33.3 % (37.0-47.0); Hemoglobin 10.5 g/dL (12.0-16.0); Mean Corp Hgb Conc. 31.5 g/dL (33.0-37.0); Mean Corpuscular Volume 94.1 fL (81.0-99.0); Nucleated Red Blood Cells % 0 %; Platelet Count 217 10^3/uL (130-400); Red Cell Dist. Width 15.8 % (11.5-14.5)
== END ==
LOC: OLABP 10:40
PROVIDERS: ATTENDING PHYSICIAN Family Medicine
DX: S72.91XD Unspecified fracture of right femur, subsequent encounter for closed fracture with routine healing (principal); D62 Acute posthemorrhagic anemia; D69.6 Thrombocytopenia, unspecified; F32.A Depression, unspecified; G47.00 Insomnia, unspecified; G62.9 Polyneuropathy, unspecified; M21.371 Foot drop, right foot; M62.82 Rhabdomyolysis; N39.0 Urinary tract infection, site not specified; Z16.12 Extended spectrum beta lactamase (ESBL) resistance
CPT/HCPCS: 36415; 85025